=== PATIENT | female | born 1930 | race Caucasian/White ===

== ENCOUNTER 2016-06-07 10:20 | Observation (INO) | payer MEDICARE ==
[~2016-06-07] VITALS: Ht 160 cm; Wt 63.4 kg
[~2016-06-07 10:20] MED LIST: ASPI81 PO; ATOR10 PO; ESTR42.5V; TOPR25TA2 PO
[2016-06-07 10:25] VITALS: BP 175/82; PULSE 72; RESP 18; TEMP 98.4; O2SAT 97
[2016-06-07] MEDS ORDERED: LIPI40TA PO (10:42)
[2016-06-07] MEDS ORDERED: METO25TA6 PO (10:42)
[2016-06-07] MEDS ORDERED: ASPI81CH37 CHEW (10:42)
[2016-06-07] MEDS ORDERED: ESTR0.5T PO (10:42)
[2016-06-07] MEDS ORDERED: SODIUM CHLORIDE 0.9% FLUSH 10 ML FLUSH IVF PRN (10:45)
[2016-06-07 10:47] VITALS: O2SAT 96
--- NOTE | 2016-06-07 10:52 | PD ---
HPI . Left upper extremity weakness Chief Complaint: Neuro Symptoms/ Deficits Time Seen by Provider: 10:41 Travel History International Travel<30 days: No Contact w/Intl Traveler<30days: No Traveled to known affect area: No History of Present Illness HPI Patient presents complaining with a brief episode of left upper extremity weakness. She noticed it while she was making her bed this morning. She pushed her life alert. By the time the medics arrived, the symptoms had resolved. She states that she probably had some slurred speech as well. She denies any other symptoms such as headache, diplopia/blurred vision. She denies any previous similar episodes. Patient reports a history of hypertension, coronary artery disease and hyperlipidemia. [id number]: Left upper extremity QUALITY: Paralyzed SEVERITY: Severe DURATION: 10 minutes TIMING: Occurred while awake this morning CONTEXT: History of hypertension, coronary artery disease and hyperlipidemia MODIFYING FACTORS: Spontaneously resolved ASSOCIATED SYMPTOMS: Possible slurred speech PFSH Past Medical History Arthritis: Yes Cancer: No Cardiac Catheterization: Yes Cardiovascular Problems: Yes (BYPASS/ HTN) High Cholesterol: Yes Diminished Hearing: No Endocrine: No Hypertension: Yes Immune Disorder: No Kidney Stones: Yes Neurologic: No Psychiatric: No Reproductive: No Respiratory: No Influenza Vaccination: Yes ?: Not Past Surgical History Abdominal Surgery: Yes Appendectomy: Yes Cardiac Surgery: Yes Coronary Artery Bypass Graft: Yes (4 VESSEL AND A VALVE REPLACED) Gynecologic Surgery: Yes (HYSTERECTOMY) Hysterectomy: Yes Social History Alcohol Use: Yes (RARELY) Tobacco Use: No Substance Use: No Allergies-Medications (Allergen,Severity, Reaction): Coded Allergies: Iodine (Verified Allergy, Severe, TONGUE SWELLS, HIVES, 06/07/16) Shrimp (Verified Allergy, Severe, SWELLING OF TROAT AND TONGUE, 06/07/16) Betadine (Verified Allergy, Mild, 06/07/16) Iohexol (OMNIPAQUE) (Verified Allergy, Mild, 06/07/16) Reported Meds & Prescriptions Reported Meds & Active Scripts Active Reported Tramadol (Tramadol HCl) 50 Mg Tab 50 Mg PO BID PRN Ranitidine 75 (Ranitidine HCl) 75 Mg Tab 75 Mg PO BID Take 30 to 60 minutes before eating food or drinking beverages that cause heartburn. Metoprolol Succinate ER 24 HR (Metoprolol Succinate) 25 Mg Tab 25 Mg PO DAILY Estradiol 0.5 Mg Tab 0.1 Mg PO DAILY Lipitor (Atorvastatin Calcium) 40 Mg Tab 40 Mg PO HS Aspirin Low Dose (Aspirin) 81 Mg Chew 81 Mg CHEW DAILY Review of Systems Except as stated in HPI: all other systems reviewed are Neg General / Constitutional: No: Fever, Chills HENT: No: Headaches, Lightheadedness Cardiovascular: No: Chest Pain or Discomfort Respiratory: No: Shortness of Breath Gastrointestinal: No: Nausea, Vomiting Neurologic: Positive: Weakness, Focal Abnormalities, Slurred Speech, No: Dizziness, Syncope, Headache, Change in Mentation, Incontinence Physical Exam Narrative GENERAL: This is a very healthy-appearing 86-year-old woman who is lucid and able to give her own history. SKIN: Warm and dry. HEAD: Atraumatic. Normocephalic. EYES: Pupils equal and round. Extraocular movements are intact. ENT: No nasal bleeding or discharge. Mucous membranes pink and moist. NECK: Trachea midline. Neck is supple. CARDIOVASCULAR: Regular rate and rhythm. Heart sounds are normal. RESPIRATORY: No accessory muscle use. Lungs are clear with good air movement throughout. GASTROINTESTINAL: Abdomen soft, non-tender, nondistended. MUSCULOSKELETAL: No obvious deformities. No edema. NEUROLOGICAL: Awake and alert. No obvious cranial nerve deficits. Motor grossly within normal limits. Normal speech. She has full and equal muscle strength in all muscle groups of the upper and lower extremities. PSYCHIATRIC: Appropriate mood and affect; insight and judgment normal. Data Data Last Documented VS Vital Signs Date Time Temp Pulse Resp B/P Pulse Ox O2 Delivery O2 Flow Rate FiO2 06/07/16 10:47 96 Room Air 06/07/16 10:25 98.4 72 18 175/82 Orders Electrocardiogram (06/07/16 ) Complete Blood Count With Diff (06/07/16 10:41) Comprehensive Metabolic Panel (06/07/16 10:41) Creatine Kinase (Cpk) (06/07/16 10:41) Troponin I (06/07/16 10:41) Ct Brain W/O Iv Contrast(Rout) (06/07/16 10:41) Ecg Monitoring (06/07/16 10:41) Iv Access Insert/Monitor (06/07/16 10:41) Oximetry (06/07/16 10:41) Sodium Chloride 0.9% Flush (Ns Flush) (06/07/16 10:45) Admit To Inpatient (06/07/16 ) Code Status (06/07/16 12:22) Vital Signs (Adult) Q4H (06/07/16 12:22) Nih Stroke Scale - Nihss .On admission and discharge (06/07/16 12:22) Neuro Checks Q2HX12,Q4H (06/07/16 12:22) ^ Notify Dr: Other (06/07/16 12:22) Consult Pt Eval & Treat (06/07/16 12:22) Case Management Consult (06/07/16 ) Activity Bed Rest (06/07/16 12:22) Nursing Bedside Swallow Assess .ONCE (06/07/16 12:22) Scd Bilateral/Knee High IVON.QSHIFT (06/07/16 12:22) Hemoglobin (Hgb) A1c (06/07/16 12:22) Lipid Profile (06/08/16 06:00) Us Carotid Arteries Comp Bilat (06/07/16 ) Holter Monitor Recording (06/07/16 ) Mra Brain W/O Contrast (Cow) (06/07/16 ) Mri Brain W/O Contrast (06/07/16 ) Echo 2d Comp W/Dopp(Routine) (06/07/16 ) Resp Oxygen Rc C Titrat 1-4 L (06/07/16 ) ^ Hold Medication (06/07/16 12:22) Sodium Chloride 0.9% Flush (Ns Flush) (06/07/16 21:00) Sodium Chloride 0.9% Flush (Ns Flush) (06/07/16 12:30) Enalaprilat Inj (Vasotec Inj) (06/07/16 12:30) Labetalol Inj (Trandate Inj) (06/07/16 12:30) Aspirin (Aspirin) (06/07/16 13:00) Coffee Attendant / Telemetry IVON.Q8H (06/07/16 12:22) Consult Stoke Navigator (06/07/16 ) Scd Bilateral/Knee High IVON.BID (06/07/16 12:22) Inpatient Certification (06/07/16 ) Atorvastatin (Lipitor) (06/07/16 21:00) Metoprolol Succinate Er (Toprol Xl) (06/08/16 09:00) Admit Order (Ed Use Only) (06/07/16 12:36) Labs Laboratory Tests Test 06/07/16 10:40 White Blood Count 8.5 TH/MM3 Red Blood Count 4.04 MIL/MM3 Hemoglobin 12.5 GM/DL Hematocrit 37.7 % Mean Corpuscular Volume 93.4 FL Mean Corpuscular Hemoglobin 30.9 PG Mean Corpuscular Hemoglobin 33.1 % Concent Red Cell Distribution Width 13.0 % Platelet Count 214 TH/MM3 Mean Platelet Volume 8.1 FL Neutrophils (%) (Auto) 52.0 % Lymphocytes (%) (Auto) 30.2 % Monocytes (%) (Auto) 10.8 % Eosinophils (%) (Auto) 6.2 % Basophils (%) (Auto) 0.8 % Neutrophils # (Auto) 4.4 TH/MM3 Lymphocytes # (Auto) 2.6 TH/MM3 Monocytes # (Auto) 0.9 TH/MM3 Eosinophils # (Auto) 0.5 TH/MM3 Basophils # (Auto) 0.1 TH/MM3 CBC Comment DIFF FINAL Differential Comment Sodium Level 141 MEQ/L Potassium Level 3.7 MEQ/L Chloride Level 107 MEQ/L Carbon Dioxide Level 27.3 MEQ/L Anion Gap 7 MEQ/L Blood Urea Nitrogen 19 MG/DL Creatinine 0.92 MG/DL Estimat Glomerular Filtration 58 ML/MIN Rate Random Glucose 70 MG/DL Hemoglobin A1c 5.2 % Calcium Level 8.9 MG/DL Total Bilirubin 0.4 MG/DL Aspartate Amino Transf 14 U/L (AST/SGOT) Alanine Aminotransferase 20 U/L (ALT/SGPT) Alkaline Phosphatase 86 U/L Total Creatine Kinase 78 U/L Troponin I LESS THAN 0.02 NG/ML Total Protein 6.6 GM/DL Albumin 3.6 GM/DL [facility] Medical Decision Making Medical Screen Exam Complete: Yes Emergency Medical Condition: Yes Medical Record Reviewed: Yes (patient has a history of recurrent disease and is status post CABG and prosthetic aortic valve.) Interpretation(s) EKG shows a sinus rhythm with no ST segment elevation or depression. Differential Diagnosis Differential diagnosis includes but is not limited to TIA, CVA, brain tumor, migraine, anxiety Narrative Course Patient presents with a brief episode of left upper extremity paralysis. She has no previous similar history. She does have risk factors for TIA/CVA in that she has a history of hypertension and hyperlipidemia. She also has known coronary artery disease. I had intended to order a CTA of her head and neck but she has anaphylaxis to dye. CBC & BMP Diagram 06/07/16 10:40 Cardiac enzymes are negative. Last Impressions Head CT 06/07/16 1041 Signed Impressions: Service Date/Time: Tuesday, June 07, 2016 11:18 - CONCLUSION: No acute disease. Durga Marte MD FACR Head Magnetic Resonance Angiography 06/07/16 0000 Signed Impressions: Service Date/Time: Tuesday, June 07, 2016 14:21 - CONCLUSION: 1. No acute abnormality. Obinna Melendrez Jr., MD Carotid Artery Ultrasound 06/07/16 0000 Signed Impressions: Service Date/Time: Tuesday, June 07, 2016 13:17 - CONCLUSION: Negative examination for a hemodynamically significant carotid stenosis. Durga Marte MD Brain MRI 06/07/16 0000 Signed Impressions: Service Date/Time: Tuesday, June 07, 2016 14:21 - CONCLUSION: 1. No evidence of acute intracranial pathology. Chronic ischemic changes as above. Octavio Echavarria MD Diagnosis Primary Impression: Transient neurologic deficit Admitting Information Admitting Physician Requests: Admit Condition: Stable Kalyani Quiroz MD Jun 07, 2016 10:52
[2016-06-07 11:07] LABS: AUTOMATED NEUTROPHIL # 4.4 TH/MM3 (1.8-7.7); BASOPHIL # 0.1 TH/MM3 (0-0.2); BASOPHIL % 0.8 % (0.0-2.0); EOSINOPHIL # 0.5 TH/MM3 (0-0.4); EOSINOPHIL % 6.2 % (0.0-4.0); HEMATOCRIT 37.7 % (35.0-46.0); HEMO FLAGS DIFF FINAL; LYMPH % 30.2 % (9.0-44.0); LYMPHOCYTE # 2.6 TH/MM3 (1.0-4.8); MEAN CELL VOLUME 93.4 FL (80.0-100.0); MEAN CORPUSCULAR HEMOGLOBIN 30.9 PG (27.0-34.0); MEAN CORPUSCULAR HGB CONC 33.1 % (32.0-36.0); MONO % 10.8 % (0.0-8.0); PLATELET COUNT 214 TH/MM3 (150-450); RED BLOOD COUNT 4.04 MIL/MM3 (4.00-5.30); WHITE BLOOD COUNT 8.5 TH/MM3 (4.0-11.0)
[2016-06-07 11:21] LABS: ALT (GPT) 20 U/L (10-53); ANION GAP 7 MEQ/L (5-15); AST (GOT) 14 U/L (15-37); BICARBONATE 27.3 MEQ/L (21.0-32.0); BLOOD UREA NITROGEN 19 MG/DL (7-18); CHLORIDE 107 MEQ/L (98-107); GLOMERULAR FILTRATION RATE 58 ML/MIN (>89); POTASSIUM 3.7 MEQ/L (3.5-5.1); SODIUM (NA) 141 MEQ/L (136-145)
[2016-06-07 11:25] LABS: ALKALINE PHOSPHATASE 86 U/L (45-117); TOTAL BILIRUBIN ADULT 0.4 MG/DL (0.2-1.0)
[2016-06-07 11:38] LABS: CREATINE KINASE 78 U/L (26-192)
--- NOTE | 2016-06-07 11:57 | RADRPT ---
EXAM DATE/TIME: 06/07/2016 11:18 [facility] COMPARISON: No previous studies available for comparison. INDICATIONS : Sudden onset of left arm and leg weakness, since resolved. RADIATION DOSE: 37.95 CTDIvol (mGy) MEDICAL HISTORY : Cardiovascular disease. Hypertension. SURGICAL HISTORY : Appendectomy. Hysterectomy. ENCOUNTER: Initial ACUITY: 1 day PAIN SCALE: 0/10 LOCATION: cranial TECHNIQUE: Multiple contiguous axial images were obtained of the head. Using automated exposure control and adj ustment of the mA and/or kV according to patient size, radiation dose was kept as low as reasonably a chievable to obtain optimal diagnostic quality images. FINDINGS: CEREBRUM: The ventricles are normal for age. No evidence of midline shift, mass lesion, hemorrhage or acute in farction. No extra-axial fluid collections are seen. POSTERIOR FOSSA: The cerebellum and brainstem are intact. The 4th ventricle is midline. The cerebellopontine angle i s unremarkable. EXTRACRANIAL: The visualized portion of the orbits is intact. SKULL: The calvaria is intact. No evidence of skull fracture. CONCLUSION: No acute disease. Durga Marte MD FACR on June 07, 2016 at 11:55 Board Certified Radiologist. This report was verified electronically.
[2016-06-07] MEDS ORDERED: ENALAPRILAT 1.25 MG/ML VIAL IV PRN (12:30)
[2016-06-07] MEDS ORDERED: LABETALOL HCL 100 MG/20 ML VIAL IV PRN (12:30)
[2016-06-07] MEDS ORDERED: SODIUM CHLORIDE 0.9% FLUSH 10 ML FLUSH IV FLUSH PRN (12:30)
[2016-06-07 13:00] VITALS: BP 166/69; PULSE 57; RESP 19; O2SAT 97
[2016-06-07] MEDS: ASPIRIN 325 MG TAB PO SCH (13:40)
--- NOTE | 2016-06-07 14:04 | RADRPT ---
EXAM DATE/TIME: 06/07/2016 13:17 [facility] COMPARISON: No previous studies available for comparison. INDICATIONS : Transischemic attack. MEDICAL HISTORY : CAD. Hypertension. Coronary artery disease. SURGICAL HISTORY : CABG. Appendectomy. Hysterectomy. ENCOUNTER: Initial ACUITY: 1 day PAIN SCORE: 0/10 LOCATION: Bilateral neck PEAK SYSTOLIC VELOCITIES (cm/sec): ICA/CCA RATIO: Right: 0.9 Left: 0.9 ICA: Right: 87 Left: 95 CCA: Right: 97 Left: 105 ECA: Right: 75 Left: 88 VERTEBRAL: Right: 21 antegrade Left: 38 antegrade Elevated flow velocities and ICA/CCA ratios have been found to correlate with increased degrees of vessel stenosis, calculated as percentage of diameter relative to a normal segment of distal ICA/CCA FINDINGS: RIGHT CAROTID: There is no evidence for a hemodynamically significant carotid stenosis. Minimal int imal hyperplasia is present with scattered calcific plaque. LEFT CAROTID: There is no evidence for a hemodynamically significant carotid stenosis. Minimal inti mal hyperplasia is present with scattered calcific plaque. VERTEBRAL ARTERIES: Flow is antegrade in both vertebral arteries. MISCELLANEOUS: There are no ancillary masses or adenopathy. CONCLUSION: Negative examination for a hemodynamically significant carotid stenosis. Durga Marte MD FACR Board Certified Radiologist. This report was verified electronically.
--- NOTE | 2016-06-07 14:48 | RADRPT ---
EXAM DATE/TIME: 06/07/2016 14:21 [facility] COMPARISON: CT BRAIN W/O CONTRAST, June 07, 2016, 11:18. INDICATIONS : Left sided weakness. MEDICAL HISTORY : Hypertension. SURGICAL HISTORY : CABG Hysterectomy. Hip replacement. ENCOUNTER: Initial ACUITY: 2 day PAIN SCORE: 0/10 LOCATION: head Please note a normal MRA of the brain does not entirely exclude the possibility of a small aneurysm, nor the possibility of distal intracranial vessel disease. TECHNIQUE: 3D time of flight MRA was performed. Source images, multiplanar STS MIP, and 3D volume MIP reconstru ctions were reviewed. FINDINGS: There is excellent visualization of the major intracranial arteries out to the second-order branch ve ssels. The right vertebral artery terminates in a PICA distribution. The left supplies the basilar. P ersistent circulation is noted bilaterally. There is no evidence for aneurysm, vessel truncati on or stenosis, and no evidence for vascular malformation. CONCLUSION: 1. No acute abnormality. Obinna Melendrez Jr., MD on June 07, 2016 at 14:44 Board Certified Radiologist. This report was verified electronically.
[2016-06-07] MEDS ORDERED: TRAM50TA PO (15:04)
[2016-06-07] MEDS ORDERED: RANI1TAB5 PO (15:04)
--- NOTE | 2016-06-07 15:28 | HHI.HP ---
HPI Service [facility] Hospitalists Primary Care Physician Rafi Reardon MD Admission Diagnosis Transient neurological deficit Chief Complaint: Brief left UE weakness Travel History International Travel<30 Days: No Contact w/Intl Traveler <30 Da: No Traveled to Known Affected Are: No History of Present Illness Mrs. Whaley is a pleasant 86 y/o female with HTN, hyperlipidemia, valvular heart disease, CAD and GERD who presented to the ED at [facility] on 06/07 after she had a brief episode of left upper extremity weakness this morning. She states that she noticed it while she was making her bed this morning and thinks she may have had some slurred speech as well. Pt became scared as she lives alone and she pushed her life alert. By the time the medics arrived, the symptoms had resolved. She denies any other symptoms such as headache, diplopia/blurred vision, chest pain, SOB, palpitations, or LE edema. She denies any previous similar episodes. Head CT in the ED was negative for any acute abnormalities. Review of Systems Constitutional: DENIES: Fever, Chills Eyes: DENIES: Blurred vision, Vision loss, Double Vision Ears, nose, mouth, throat: DENIES: Vertigo Respiratory: DENIES: Shortness of breath Cardiovascular: DENIES: Chest pain, Palpitations, Lower Extremity Edema Gastrointestinal: DENIES: Abdominal pain, Nausea, Vomiting Genitourinary: DENIES: Hematuria, Dysuria Musculoskeletal: DENIES: Joint pain Integumentary: DENIES: Rash Neurologic: COMPLAINS OF: Localized weakness, DENIES: Abnormal gait, Headache , Paresthesias, Poor Balance Past Family Social History Past Medical History AAA Aortic valve stenosis HTN Hyperlipidemia Osteoarthritis Osteoporosis Thoracic spondylosis Past Surgical History Aortic valve replacement in 1999 CABG x 4 Appendectomy Epidural steroid injections Hysterectomy, total Left total hip replacement Vaginal sling for incontinence Varicose vein ligation Reported Medications -Tramadol 50 Mg PO BID PRN -Ranitidine 75 Mg PO BID -Metoprolol Succinate ER 25 Mg PO DAILY -Estradiol 0.1 Mg PO DAILY -Lipitor 40 Mg PO HS -Aspirin 81 Mg CHEW DAILY Allergies: Coded Allergies: Iodine (Verified Allergy, Severe, TONGUE SWELLS, HIVES, 06/07/16) Shrimp (Verified Allergy, Severe, SWELLING OF TROAT AND TONGUE, 06/07/16) Betadine (Verified Allergy, Mild, 06/07/16) Iohexol (OMNIPAQUE) (Verified Allergy, Mild, 06/07/16) Family History Mother at age 58 from a CVA Father at age 56 from a CVA Sister at age 77 from CVA Social History No reported alcohol, tobacco or illicit drug use Pt is and lives alone, however her children live locally and are a good support for her. Physical Exam Vital Signs Vital Signs Date Time Temp Pulse Resp B/P Pulse Ox O2 Delivery O2 Flow Rate FiO2 06/07/16 13:00 57 19 166/69 97 Room Air 06/07/16 10:47 96 Room Air 06/07/16 10:25 98.4 72 18 175/82 97 Physical Exam GENERAL: This is a well-nourished, well-developed patient, in no apparent distress. HEENT: Atraumatic. Normocephalic. No temporal or scalp tenderness. No scleral icterus. Airway patent. NECK: Trachea midline, supple, nontender. CARDIO: Regular. RESP: CTA bilaterally. No wheezes, rales, or rhonchi. ABD: +BS, soft, non-tender, nondistended. EXT: Extremities without clubbing, cyanosis, or edema. NEURO: Awake and alert. Motor and sensory grossly within normal limits. Normal speech. Laboratory Laboratory Tests Test 06/07/16 10:40 White Blood Count 8.5 Red Blood Count 4.04 Hemoglobin 12.5 Hematocrit 37.7 Mean Corpuscular Volume 93.4 Mean Corpuscular Hemoglobin 30.9 Mean Corpuscular Hemoglobin 33.1 Concent Red Cell Distribution Width 13.0 Platelet Count 214 Mean Platelet Volume 8.1 Neutrophils (%) (Auto) 52.0 Lymphocytes (%) (Auto) 30.2 Monocytes (%) (Auto) 10.8 Eosinophils (%) (Auto) 6.2 Basophils (%) (Auto) 0.8 Neutrophils # (Auto) 4.4 Lymphocytes # (Auto) 2.6 Monocytes # (Auto) 0.9 Eosinophils # (Auto) 0.5 Basophils # (Auto) 0.1 CBC Comment DIFF FINAL Differential Comment Sodium Level 141 Potassium Level 3.7 Chloride Level 107 Carbon Dioxide Level 27.3 Anion Gap 7 Blood Urea Nitrogen 19 Creatinine 0.92 Estimat Glomerular Filtration 58 Rate Random Glucose 70 Calcium Level 8.9 Total Bilirubin 0.4 Aspartate Amino Transf 14 (AST/SGOT) Alanine Aminotransferase 20 (ALT/SGPT) Alkaline Phosphatase 86 Total Creatine Kinase 78 Troponin I LESS THAN 0.02 Total Protein 6.6 Albumin 3.6 Result Diagram: 06/07/16 1040 06/07/16 1040 Imaging Last Impressions Head CT 06/07/16 1041 Signed Impressions: Service Date/Time: Tuesday, June 07, 2016 11:18 - CONCLUSION: No acute disease. Durga Marte MD FACR Head Magnetic Resonance Angiography 06/07/16 0000 Signed Impressions: Service Date/Time: Tuesday, June 07, 2016 14:21 - CONCLUSION: 1. No acute abnormality. Obinna Melendrez Jr., MD Carotid Artery Ultrasound 06/07/16 0000 Signed Impressions: Service Date/Time: Tuesday, June 07, 2016 13:17 - CONCLUSION: Negative examination for a hemodynamically significant carotid stenosis. Durga Marte MD Septic Shock Reassessment Heart: Regular rate and rhythm Lungs: Clear Skin: Warm Peripheral Pulses: Bounding Right Radial Bounding Left Radial Bounding Right Popliteal Bounding Left Popliteal Bounding Right Dorsalis Pedis Bounding Left Dorsalis Pedis Bounding Right Posterior Tibial Bounding Left Posterior Tibial Assessment and Plan Problem List: (1) Transient neurologic deficit Status: Acute Plan: - Pt was admitted after an episode of transient weakness in her left upper extremity while making her bed this morning. Its unclear if she had any slurred speech associated with this or not. Her symptoms resolved prior to [facility] arrival. - Pt has not had any previous similar episodes. She has a strong family hx of CVA and does have risk factors, including CAD, HTN, hyperlipidemia - Head CT was negative,. - Check MRI brain, MRA brain, Carotid US - Holter monitor - 2D echo - Lipid panel - Hgb A1C - PT evaluation - Anticipate discharge home tomorrow if above workup is negative. - DVT prophylaxis (2) HTN (hypertension) Status: Chronic Plan: - Cont. Metoprolol 25mg po daily - Monitor (3) Hyperlipidemia Status: Chronic Plan: - See above. - Cont. home meds (4) GERD (gastroesophageal reflux disease) Status: Chronic Plan: - PPI Assessment and Plan Patient examined. Assessment and plan formulated with Coco Starr PA-C. I agree with the above. Physician Certification 2 Midnight Certification Type: Admission for Inpatient Services Order for Inpatient Services The services are ordered in accordance with Medicare regulations or non- Medicare payer requirements, as applicable. In the case of services not specified as inpatient-only, they are appropriately provided as inpatient services in accordance with the 2-midnight benchmark. Estimated LOS (days): 2 2 days is the estimated time the patient will need to remain in the hospital, assuming treatment plan goals are met and no additional complications. Post-Hospital Plan: Not yet determined Problem Qualifiers (1) GERD (gastroesophageal reflux disease): Qualified Code: K21.9 - Gastroesophageal reflux disease, esophagitis presence not specified Coco Starr Jun 07, 2016 15:28 Daniel Wheatley DO Jun 08, 2016 23:17
[2016-06-07 15:40] LABS: HEMOGLOBIN A1a 0.8 %; HEMOGLOBIN A1b 1.8 %
--- NOTE | 2016-06-07 16:16 | RADRPT ---
EXAM DATE/TIME: 06/07/2016 14:21 [facility] COMPARISON: No previous studies available for comparison. INDICATIONS : Left sided weakness. MEDICAL HISTORY : Hypertension. SURGICAL HISTORY : CABG Hysterectomy. Hip replacement. ENCOUNTER: Initial ACUITY: 2 day PAIN SCORE: 0/10 LOCATION: head TECHNIQUE: Multiplanar, multisequence MRI of the brain was performed without contrast. FINDINGS: MRI of the brain is performed in sagittal, axial and coronal planes. The craniocervical junction and midline structures are unremarkable. Diffusion weighted images demonstrate no abnormality. There is n o evidence of acute cortical infarction, acute hemorrhage, mass effect or midline shift is seen. Ther e is periventricular hyperintensity on the T2 weighted images consistent with small vessel vascular d isease significantly more than expected in a patient of this age. 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 Posterior fossa structures are unremarkable. CONCLUSION: 1. No evidence of acute intracranial pathology. Chronic ischemic changes as above. Octavio Echavarria MD on June 07, 2016 at 16:02 Board Certified Radiologist. This report was verified electronically.
[2016-06-07 16:30] VITALS: BP 174/74; PULSE 62; RESP 20; O2SAT 96
[2016-06-07 18:00] VITALS: BP 157/65; PULSE 65; RESP 20; O2SAT 96
--- NOTE | 2016-06-07 19:52 | EKG ---
Date Performed: 06/07/2016 Time Performed: 10:31:08 PTAGE: 86 years EKG: Sinus rhythm MINIMAL ST DEPRESSION BORDERLINE ECG PREVIOUS TRACING : 07/26/2006 09.00 Compared to prior tracing no significant change DOCTOR: Mulu Castillo Interpretating Date/Time 06/07/2016 19:51:01
[2016-06-07 20:30] VITALS: BP 167/73; PULSE 68; RESP 20; TEMP 97.3; O2SAT 97
[2016-06-07] MEDS ORDERED: RANITIDINE 75 MG PO SCH (21:00)
--- NOTE | 2016-06-07 21:00 | EC ---
Study Study Date:06/07/2016 STUDY CONCLUSIONS SUMMARY - Left ventricle: The cavity size was normal. Wall thickness was normal. Systolic function was normal. The estimated ejection fraction was in the range of 50% to 55%. Wall motion was normal; there were no regional wall motion abnormalities. - Aortic valve: A bioprosthesis was present. Mild regurgitation. Valve area: 1.25cm^2(VTI). Valve area: 1.28cm^2 (Vmax). - Mitral valve: Mildly calcified annulus. - Tricuspid valve: Mild regurgitation. If LV function is below 40, please consider prescribing an ACEI or ARB or document rationale for non-use. PROCEDURE DATA STUDY STATUS: Elective. Procedure: Transthoracic echocardiography. Image quality was good. Scanning was performed from the parasternal, apical, and subcostal acoustic windows. Study completion: The patient tolerated the procedure well. Transthoracic echocardiography. M-mode, complete 2D, complete spectral Doppler, and color Doppler. Height: Height: 64in. Weight: Weight: 126.7lb. Body mass index: BMI: 21.8kg/m^2. Body surface area: BSA: 1.61m^2. Patient status: Inpatient. CARDIAC ANATOMY LEFT VENTRICLE: The cavity size was normal. Wall thickness was normal. Systolic function was normal. The estimated ejection fraction was in the range of 50% to 55%. Wall motion was normal; there were no regional wall motion abnormalities. AORTIC VALVE: Normal thickness leaflets. A bioprosthesis was present. Doppler: Transvalvular velocity was minimally increased. There was no stenosis. Mild regurgitation. Valve area: 1.25cm^2(VTI). Indexed valve area: 0.78cm^2/m^2 (VTI). Valve area: 1.28cm^2 (Vmax). Indexed valve area: 0.8cm^2/m^2 (Vmax). Mean gradient: 12mm Hg (S). Peak gradient: 23mm Hg (S). AORTA: Aortic root: The aortic root was normal in size. MITRAL VALVE: Mildly calcified annulus. Doppler: Transvalvular velocity was within the normal range. There was no evidence for stenosis. No regurgitation. Valve area by pressure half-time: 3.14cm^2. Indexed valve area by pressure half-time: 1.95cm^2/m^2. Peak gradient: 4mm Hg (D). LEFT ATRIUM: The atrium was normal in size. RIGHT VENTRICLE: The cavity size was normal. Wall thickness was normal. PULMONIC VALVE: Doppler: Transvalvular velocity was within the normal range. There was no evidence for stenosis. No regurgitation. TRICUSPID VALVE: Structurally normal valve. Doppler: Transvalvular velocity was within the normal range. Mild regurgitation. Peak gradient: 27mm Hg (D). PULMONARY ARTERY: The main pulmonary artery was normal-sized. Systolic pressure was within the normal range. RIGHT ATRIUM: The atrium was normal in size. PERICARDIUM: There was no pericardial effusion. SYSTEMIC VEINS: Inferior vena cava: The vessel was normal in size. Patient weight: 126.7lb _Ejection fraction:_ 65-75% _Fractional shortening:_ 32% up to 5Kg 5-11.5Kg 11.6-22.9Kg 23-45Kg 45-57Kg Aortic Root 7-13 <17 13-22 17-27 17-27 LA diam 6-13 <23 24-38 33-47 37-40 RVID 10-17 7-15 7-15 7-18 8-17 LVIDd 12-22 <32 24-38 33-47 37-40 LVPW 2-4 3-6 5-7 6-8 7-8 IVS 2-4 3-6 5-7 6-8 7-8 BASIC MEASUREMENTS ADULT NORMAL Left ventricle LV internal dimension, ED, chordal *37.2 mm 43-52 level, PLAX LV internal dimension, ES, chordal *21.6 mm 23-38 level, PLAX Fractional shortening, chordal level, 42 % >29 PLAX LV posterior wall thickness, ED 11.8 mm IVS/LVPW ratio, ED 1 <1.3 Volume, ED, MOD, 1-plane 55 ml Volume, ES, MOD, 1-plane 22 ml Ejection fraction, MOD, 1-plane 60 % Stroke volume, MOD, 1-plane 33 ml Volume index, ED, MOD, 1-plane 34 ml/m^2 Volume index, ES, MOD, 1-plane 14 ml/m^2 Stroke index, MOD, 1-plane 20.5 ml/m^2 Ventricular septum Septal thickness, ED 11.8 mm Aortic valve Leaflet separation *12 mm 15-26 Aorta Root diameter, ED 31 mm Left atrium Anterior-posterior dimension 39 mm Anterior-posterior dimension index *2.42 cm/m^2 <2.2 Right ventricle RV internal dimension, ED, PLAX 27.4 mm 19-38 BASIC MEASUREMENTS ADULT NORMAL Aortic valve Leaflet separation *12 mm 15-26 Aorta Root diameter, ED 31 mm 20-37 DOPPLER MEASUREMENTS ADULT NORMAL Aortic valve Peak velocity, S 239 cm/s Mean velocity, S 167 cm/s VTI, S 51.1 cm Mean gradient, S 12 mm Hg Peak gradient, S 23 mm Hg Valve area, VTI 1.25 cm^2 Valve area index, VTI 0.78 cm^2/m^2 Valve area, Vmax 1.28 cm^2 Valve area index, Vmax 0.8 cm^2/m^2 Regurgitant velocity, ED 255 cm/s Regurgitant deceleration 1520 cm/s^2 Regurgitant pressure half-time 447 ms Regurgitant gradient, ED 26 mm Hg Mitral valve Peak E-wave velocity 102 cm/s Peak A-wave velocity 123 cm/s Pressure half-time 70 ms Peak gradient, D 4 mm Hg Peak E/A ratio 0.8 Valve area, pressure half-time 3.14 cm^2 Valve area index, pressure half-time 1.95 cm^2/m^2 Tricuspid valve Peak gradient, D 27 mm Hg Maximal inflow velocity 262 cm/s Systemic veins Estimated CVP 10 mm Hg Pulmonic valve Peak velocity, S 47.5 cm/s LEGEND: Mean values are shown as u=mean value. Asterisk (*) luciano values outside specified normal range. Prepared and signed by Dewey Mehta [id number]
[2016-06-07] MEDS: ATORVASTATIN 40 MG TAB PO SCH (22:53)
[2016-06-07] MEDS: SODIUM CHLORIDE 0.9% FLUSH 10 ML FLUSH IV FLUSH SCH (22:53)
[2016-06-08] VITALS (9 sets, daily range): BP systolic 145–208; BP diastolic 64–89; PULSE 63–94; RESP 18; TEMP 95.7–97.1; O2SAT 65–96
[2016-06-08] MEDS: ASPIRIN 325 MG TAB PO SCH (08:19)
[2016-06-08] MEDS: SODIUM CHLORIDE 0.9% FLUSH 10 ML FLUSH IV FLUSH SCH ×2 (08:20→21:00)
[2016-06-08] MEDS: METOPROLOL SUCCINATE 25 MG EXTENDED RELEASE TAB PO SCH (08:20)
[2016-06-08 09:26] LABS: HDL CHOLESTEROL 65.9 MG/DL (40.0-60.0)
--- NOTE | 2016-06-08 15:14 | HHI.PR ---
Subjective Remarks No new complaints. Pt denies further focal weakness, NO difficulties with speech or swallow. Objective Vitals Vital Signs Date Time Temp Pulse Resp B/P Pulse Ox O2 Delivery O2 Flow Rate FiO2 06/08/16 13:05 96.7 94 18 181/71 94 06/08/16 11:31 96 21 06/08/16 08:57 97.1 69 18 186/84 95 06/08/16 04:00 96.3 65 18 169/74 65 06/08/16 00:00 97.0 63 18 174/74 96 06/07/16 20:30 97.3 68 20 167/73 97 06/07/16 18:00 65 20 157/65 96 Room Air 06/07/16 16:30 62 20 174/74 96 Room Air 06/07/16 06/07/16 06/08/16 15:00 23:00 07:00 Intake Total 120 ml Balance 120 ml Intake Oral 120 ml # Voids 1 3 # Bowel Movements 0 1 Result Diagram: 06/07/16 1040 06/07/16 1040 Imaging Last Impressions Head CT 06/07/16 1041 Signed Impressions: Service Date/Time: Tuesday, June 07, 2016 11:18 - CONCLUSION: No acute disease. Durga Marte MD FACR Head Magnetic Resonance Angiography 06/07/16 0000 Signed Impressions: Service Date/Time: Tuesday, June 07, 2016 14:21 - CONCLUSION: 1. No acute abnormality. Obinna Melendrez Jr., MD Carotid Artery Ultrasound 06/07/16 0000 Signed Impressions: Service Date/Time: Tuesday, June 07, 2016 13:17 - CONCLUSION: Negative examination for a hemodynamically significant carotid stenosis. Durga Marte MD Objective Remarks GENERAL: This is a well-nourished, well-developed patient, in no apparent distress. CARDIOVASCULAR: Regular rate and rhythm without murmurs, gallops, or rubs. RESPIRATORY: Clear to auscultation. Breath sounds equal bilaterally. No wheezes , rales, or rhonchi. GASTROINTESTINAL: Abdomen soft, non-tender, nondistended. Normal active bowel sounds MUSCULOSKELETAL: Extremities without clubbing, cyanosis, or edema. NEURO: Alert & Oriented x4 to person, place, time, situation. Moves all ext x4 A/P Problem List: (1) Transient neurologic deficit Status: Acute Plan: - Pt was admitted after an episode of transient weakness in her left upper extremity while making her bed this morning. Its unclear if she had any slurred speech associated with this or not. Her symptoms resolved prior to [facility] arrival. - Pt has not had any previous similar episodes. She has a strong family hx of CVA and does have risk factors, including CAD, HTN, hyperlipidemia - Head CT was negative - Brain MRI (06/07/16) --> NO acute findings - Brain MRA (06/07/16) --> NO acute findings - B/L Carotid US --> NO hemodynamically significant stenosis - Echocardiogram (06/07/16) --> EF 60-65%, no thrombus - Holter monitor --> pending - 2D echo - LDL 92 (06/08/16), continue lipitor - Hgb A1C 5.2 (06/07/16) - continue PT , will arrange for HHC and home PT - stop permissive HTN & reign in blood pressure prior to discharge - continue metoprolol 25mg BID - start procardia xl 30mg daily - continue ASA - start plavix - anticipate d/c to home with HHC/PT in 1-2 days - DVT prophylaxis (2) HTN (hypertension) Status: Chronic Plan: - Cont. Metoprolol 25mg po daily - start procardia XL 30mg daily - Monitor (3) Hyperlipidemia Status: Chronic Plan: - See above. - Cont. home meds (4) GERD (gastroesophageal reflux disease) Status: Chronic Plan: - PPI Problem Qualifiers (1) GERD (gastroesophageal reflux disease): Qualified Code: K21.9 - Gastroesophageal reflux disease, esophagitis presence not specified Daniel Wheatley DO Jun 08, 2016 15:14
--- NOTE | 2016-06-08 15:41 | HHI.FF ---
Face to Face Verification Diagnosis: (1) Transient neurologic deficit (2) HTN (hypertension) (3) GERD (gastroesophageal reflux disease) (4) Hyperlipidemia Physical Therapy Order: Evaluate and Treat, Improve ambulation, Strength and gait training Home Health Nursing Order: Signs/symptoms of disease process Nursing assessment with vital signs I have seen patient Omayra Whaley on 06/08/16. My clinical findings support the need for the requested home health care services because: Deconditioned w/ increased weakness High risk of falls I certify that my clinical findings support that this patient is homebound because: Unsteady gait/balance Coco Starr Jun 08, 2016 15:41 Daniel Wheatley DO Jun 08, 2016 23:16
[2016-06-08] MEDS ORDERED: WALKER WHEELS/F1 MIS (15:43)
[2016-06-08] MEDS: NIFEdipine 30 MG SUSTAINED RELEASE TAB PO SCH (16:36)
[2016-06-08] MEDS: CLOPIDOGREL 75 MG TAB PO SCH (16:37)
[2016-06-08] MEDS: ATORVASTATIN 40 MG TAB PO SCH (22:24)
[2016-06-09] VITALS (9 sets, daily range): BP systolic 108–163; BP diastolic 56–76; PULSE 55–133; RESP 18–21; TEMP 95.9–98.5; O2SAT 94–99
[2016-06-09] MEDS: METOPROLOL SUCCINATE 25 MG EXTENDED RELEASE TAB PO SCH (08:58)
[2016-06-09] MEDS: ASPIRIN 325 MG TAB PO SCH (08:58)
[2016-06-09] MEDS: SODIUM CHLORIDE 0.9% FLUSH 10 ML FLUSH IV FLUSH SCH (08:58)
[2016-06-09] MEDS: CLOPIDOGREL 75 MG TAB PO SCH (08:58)
[2016-06-09] MEDS: NIFEdipine 30 MG SUSTAINED RELEASE TAB PO SCH (08:58)
[2016-06-09] MEDS ORDERED: PLAV75TA29 PO (15:23)
[2016-06-09] MEDS ORDERED: NIFE30TA8 PO (15:23)
--- NOTE | 2016-06-09 15:25 | HHI.DCPOC ---
Discharge Care Plan Diagnosis: (1) TIA (transient ischemic attack) (2) HTN (hypertension) (3) GERD (gastroesophageal reflux disease) (4) Hyperlipidemia Goals to Promote Your Health * To prevent worsening of your condition and complications * To maintain your health at the optimal level Directions to Meet Your Goals Take your medications as prescribed Follow your dietary instruction Follow activity as directed Keep your appointments as scheduled Take your immunizations and boosters as scheduled If your symptoms worsen call your PCP, if no PCP go to Urgent Care Center or Emergency Room Smoking is Dangerous to Your Health. Avoid second hand smoke Call the 24-hour hour crisis hotline for domestic abuse at Coco Starr Jun 09, 2016 15:25 Daniel Wheatley DO Jun 11, 2016 10:49
--- NOTE | 2016-06-09 15:34 | HHI.DS ---
Discharge Summary Admission Date Jun 07, 2016 at 12:38 Discharge Date: Jun 09, 2016 Admitting Diagnosis Transient neurological deficit (1) TIA (transient ischemic attack) Diagnosis: Principal (2) HTN (hypertension) Diagnosis: Secondary (3) Hyperlipidemia Diagnosis: Secondary (4) GERD (gastroesophageal reflux disease) Diagnosis: Secondary Brief History Mrs. Whaley is a pleasant 86 y/o female with HTN, hyperlipidemia, valvular heart disease, CAD and GERD who presented to the ED at [facility] on 06/07 after she had a brief episode of left upper extremity weakness this morning. She states that she noticed it while she was making her bed this morning and thinks she may have had some slurred speech as well. Pt became scared as she lives alone and she pushed her life alert. By the time the medics arrived, the symptoms had resolved. She denies any other symptoms such as headache, diplopia/blurred vision, chest pain, SOB, palpitations, or LE edema. She denies any previous similar episodes. Head CT in the ED was negative for any acute abnormalities. CBC/BMP: 06/07/16 1040 06/07/16 1040 Significant Findings Laboratory Tests Test 06/07/16 06/08/16 10:40 07:46 Monocytes (%) (Auto) 10.8 % (0.0-8.0) Eosinophils (%) (Auto) 6.2 % (0.0-4.0) Eosinophils # (Auto) 0.5 TH/MM3 (0-0.4) Blood Urea Nitrogen 19 MG/DL (7-18) Estimat Glomerular Filtration 58 ML/MIN (>89) Rate Random Glucose 70 MG/DL (74-106) Aspartate Amino Transf 14 U/L (15-37) (AST/SGOT) Troponin I LESS THAN 0.02 NG/ML (0.02-0.05) HDL Cholesterol 65.9 MG/DL (40.0-60.0) Imaging Last Impressions Head CT 06/07/16 1041 Signed Impressions: Service Date/Time: Tuesday, June 07, 2016 11:18 - CONCLUSION: No acute disease. Durga Marte MD FACR Head Magnetic Resonance Angiography 06/07/16 0000 Signed Impressions: Service Date/Time: Tuesday, June 07, 2016 14:21 - CONCLUSION: 1. No acute abnormality. Obinna Melendrez Jr., MD Carotid Artery Ultrasound 06/07/16 0000 Signed Impressions: Service Date/Time: Tuesday, June 07, 2016 13:17 - CONCLUSION: Negative examination for a hemodynamically significant carotid stenosis. Durga Marte MD Brain MRI 06/07/16 0000 Signed Impressions: Service Date/Time: Tuesday, June 07, 2016 14:21 - CONCLUSION: 1. No evidence of acute intracranial pathology. Chronic ischemic changes as above. Octavio Echavarria MD PE at Discharge GENERAL: This is a well-nourished, well-developed patient, in no apparent distress. CARDIOVASCULAR: Regular rate and rhythm without murmurs, gallops, or rubs. RESPIRATORY: Clear to auscultation. Breath sounds equal bilaterally. No wheezes , rales, or rhonchi. GASTROINTESTINAL: Abdomen soft, non-tender, nondistended. Normal active bowel sounds MUSCULOSKELETAL: Extremities without clubbing, cyanosis, or edema. NEURO: Alert & Oriented x4 to person, place, time, situation. Moves all ext x4 Hospital Course Pt was admitted after an episode of transient weakness in her left upper extremity while making her bed on the morning of admission. Her daughter felt that she had some slurred speech that morning when she talked to the pt on the phone while [facility] was present. Her arm weakness had resolved prior to [facility] arrival. Pt has not had any previous similar episodes. She has a strong family hx of CVA and does have risk factors, including CAD, HTN, hyperlipidemia. Head CT was negative. Brain MRI (06/07/16) --> NO acute findings. Brain MRA (06/07/16) --> NO acute findings. B/L Carotid US --> NO hemodynamically significant stenosis. Echocardiogram (06/07/16) --> EF 60-65%, no thrombus. Holter monitor -- > is pending. LDL 92 (06/08/16), continue Lipitor. Hgb A1C 5.2 (06/07/16). It is felt that the pts symptoms may have been related to a TIA. Pt was continued on her home dose of Metoprolol 25mg BID. Her BP remained elevated and she was started on Procardia xl 30mg daily with improvement in her BP. She was continued on ASA and Plavix 75 mg po daily was added to her regimen. Pt is being discharged home with C/PT She will need to followup with her PCP, Dr. Reardon, next week. Pt Condition on Discharge: Stable Discharge Disposition: Disch w/ Home Health Serv Discharge Instructions DIET: Follow Instructions for: Heart Healthy Diet Activities you can perform: Regular-No Restrictions Follow up Referrals: PCP Follow-up - [address] Rafi Reardon New Medications: Walker with Front Wheels (Walker with Front Wheels) 1 Mis Mis 1 EA .ROUTE DIRECTED #1 Ref 0 EA Clopidogrel (Plavix) 75 Mg Tab 75 MG PO DAILY TIA #30 TAB Nifedipine ER 24 HR (Nifedipine ER 24 HR) 30 Mg Tab 30 MG PO DAILY TIA #30 TAB Continued Medications: Aspirin (Aspirin Low Dose) 81 Mg Chew 81 MG CHEW DAILY Ref 0 TAB Atorvastatin (Lipitor) 40 Mg Tab 40 MG PO HS Cholesterol Management #30 Ref 0 TAB Estradiol (Estradiol) 0.5 Mg Tab 0.1 MG PO DAILY Estrogen Supplements #30 Ref 0 TAB Metoprolol Succinate ER 24 HR (Metoprolol Succinate ER 24 HR) 25 Mg Tab 25 MG PO DAILY #30 Ref 0 TAB Ranitidine (Ranitidine 75) 75 Mg Tab 75 MG PO BID Take 30 to 60 minutes before eating food or drinking beverages that cause heartburn. Heartburn Ref 0 TAB Tramadol (Tramadol) 50 Mg Tab 50 MG PO BID PRN PAIN Ref 0 TAB Additional Information Patient examined. Assessment and plan formulated with Coco Starr PA-C. I agree with the above. Coco Starr Jun 09, 2016 15:34 Daniel Wheatley DO Jun 11, 2016 10:48
== END 2016-06-09 17:12 | disposition home health service (06) ==
LOC: NEPA 10:20 → NEDA 12:38 → INTOOBSV 12:38 → N05B 20:10
PROVIDERS: ADMIT Hospitalist; ATTEND Hospitalist
DX: G45.9 Transient cerebral ischemic attack, unspecified (principal); I10 Essential (primary) hypertension; E78.5 Hyperlipidemia, unspecified; I25.10 Atherosclerotic heart disease of native coronary artery without angina pectoris; K21.9 Gastro-esophageal reflux disease without esophagitis; E78.00 Pure hypercholesterolemia, unspecified; M81.0 Age-related osteoporosis without current pathological fracture; Z96.642 Presence of left artificial hip joint; Z95.1 Presence of aortocoronary bypass graft; Z95.2 Presence of prosthetic heart valve; Z88.3 Allergy status to other anti-infective agents; Z91.041 Radiographic dye allergy status; Z91.013 Allergy to seafood; Z79.82 Long term (current) use of aspirin; Z82.3 Family history of stroke
CPT/HCPCS: 70450; 70544; 70551; 80053; 80061; 82550; 83036; 84484; 85025; 93005; 93306; 93880; G0378

== ENCOUNTER 2016-11-17 10:08 | Emergency (ER) | payer MEDICARE ==
[~2016-11-17] VITALS: Ht 157.5 cm; Wt 62.0 kg
[~2016-11-17 10:08] MED LIST changes: -ASPI81 PO; +ASPI81CH37 CHEW; -ATOR10 PO; +ESTR0.5T PO; -ESTR42.5V; +LIPI40TA PO; +METO25TA6 PO; +NIFE30TA8 PO; +PLAV75TA29 PO; +RANI1TAB5 PO; -TOPR25TA2 PO; +TRAM50TA PO; +WALKER WHEELS/F1 MIS
[2016-11-17 10:21] VITALS: BP 181/84; PULSE 73; RESP 16; TEMP 97.8; O2SAT 98
--- NOTE | 2016-11-17 10:39 | PD ---
HPI Chief Complaint: Fall Time Seen by Provider: 10:27 Travel History International Travel<30 days: No Contact w/Intl Traveler<30days: No Traveled to known affect area: No History of Present Illness HPI This 86-year-old female resides at an assisted living facility. He had a fall today and hit her head. Her son was advised to bring her for evaluation. She does not think that she had a loss of consciousness or did not witness the episode. She has a history of some mild dementia. She does take Plavix. She says that she feels a pressure in her head. She has no numbness or tingling. She has no neck pain. She has no other injury PFSH Past Medical History Hx Anticoagulant Therapy: Yes (PLAVIX) Arthritis: Yes Cancer: No Cardiac Catheterization: Yes Cardiovascular Problems: Yes (BYPASS/ HTN) High Cholesterol: Yes Diminished Hearing: No Endocrine: No Hypertension: Yes Immune Disorder: No Kidney Stones: Yes Neurologic: No Psychiatric: No Reproductive: No Respiratory: No Past Surgical History Abdominal Surgery: Yes Appendectomy: Yes Cardiac Surgery: Yes Coronary Artery Bypass Graft: Yes (4 VESSEL AND A VALVE REPLACED) Gynecologic Surgery: Yes (HYSTERECTOMY) Hysterectomy: Yes Social History Alcohol Use: Yes (RARELY) Tobacco Use: No Substance Use: No Allergies-Medications (Allergen,Severity, Reaction): Coded Allergies: iodine (Unverified Allergy, Severe, TONGUE SWELLS, HIVES, 11/17/16) potassium iodide (Unverified Allergy, Severe, TONGUE SWELLS, HIVES, 11/17/16 ) povidone-iodine (Unverified Allergy, Severe, TONGUE SWELLS, HIVES, 11/17/16) shrimp (Unverified Allergy, Severe, SWELLING OF TROAT AND TONGUE, 11/17/16) sodium iodide (Unverified Allergy, Severe, TONGUE SWELLS, HIVES, 11/17/16) sodium iodide (Unverified Allergy, Severe, TONGUE SWELLS, HIVES, 11/17/16) iohexol (Unverified Allergy, Mild, 11/17/16) Reported Meds & Prescriptions Reported Meds & Active Scripts Active Plavix (Clopidogrel Bisulfate) 75 Mg Tab 75 Mg PO DAILY Walker with Front Wheels (Device) 1 Mis Mis 1 Ea .ROUTE DIRECTED Reported Metoprolol Succinate ER 24 HR (Metoprolol Succinate) 25 Mg Tab 25 Mg PO DAILY Review of Systems General / Constitutional: No: Fever, Chills Eyes: No: Diploplia HENT: Positive: Headaches Cardiovascular: No: Chest Pain or Discomfort, Palpitations Respiratory: No: Cough, Shortness of Breath Gastrointestinal: No: Nausea, Vomiting Genitourinary: No: Frequency, Dysuria Musculoskeletal: No: Myalgias, Arthralgias Skin: No Rash, No Itching Neurologic: No: Focal Abnormalities Psychiatric: No: Anxiety Endocrine: No: Heat Intolerance Hematologic/Lymphatic: No: Easy Bruising Physical Exam Narrative GENERAL: Well-developed female SKIN: Focused skin assessment warm/dry. HEAD: Atraumatic. Normocephalic. EYES: Pupils equal and round. No scleral icterus. No injection or drainage. ENT: No nasal bleeding or discharge. Mucous membranes pink and moist. NECK: Trachea midline. No JVD. CARDIOVASCULAR: Regular rate and rhythm. No murmur appreciated. RESPIRATORY: No accessory muscle use. Clear to auscultation. Breath sounds equal bilaterally. GASTROINTESTINAL: Abdomen soft, non-tender, nondistended. Hepatic and splenic margins not palpable. MUSCULOSKELETAL: No obvious deformities. No clubbing. No cyanosis. No edema. NEUROLOGICAL: Awake and alert. No obvious cranial nerve deficits. Motor grossly within normal limits. Normal speech. She is not oriented to the date PSYCHIATRIC: Appropriate mood and affect; i Data Data Last Documented VS Vital Signs Date Time Temp Pulse Resp B/P (MAP) Pulse Ox O2 Delivery O2 Flow Rate FiO2 11/17/16 10:47 72 16 98 Room Air 11/17/16 10:21 97.8 181/84 (116) Orders Orders Ct Brain W/O Iv Contrast(Rout) (11/17/16 10:32) [facility] Medical Decision Making Medical Screen Exam Complete: Yes Emergency Medical Condition: Yes Medical Record Reviewed: Yes Differential Diagnosis Differential includes skull fracture, intracerebral hemorrhage, contusion Narrative Course X-rays negative for fracture or hemorrhage. They she is stable for discharge Diagnosis Primary Impression: Contusion of head Qualified Codes: S00.93XA - Contusion of unspecified part of head, initial encounter Disposition: 01 DISCHARGE HOME Condition: Stable Antione Lozano MD Nov 17, 2016 10:39
--- NOTE | 2016-11-17 11:07 | RADRPT ---
EXAM DATE/TIME: 11/17/2016 10:47 [place] COMPARISON: No previous studies available for comparison. INDICATIONS : Trauma. Fall. Hit back of head. RADIATION DOSE: 61.56 CTDIvol (mGy) MEDICAL HISTORY : Cardiovascular disease. Hypertension. SURGICAL HISTORY : CABG Appendectomy.Hysterectomy. ENCOUNTER: Initial ACUITY: 1 day PAIN SCALE: 2/10 LOCATION: cranial TECHNIQUE: Multiple contiguous axial images were obtained of the head. Using automated exposure control and adj ustment of the mA and/or kV according to patient size, radiation dose was kept as low as reasonably a chievable to obtain optimal diagnostic quality images. DICOM format image data is available electro nically for review and comparison. FINDINGS: There is no evidence for intracranial hemorrhage, mass effect, mass lesions, or edema. The visualize d bony structures appear intact. Moderate degree of brain atrophy is seen. Moderate periventricular white matter changes are seen nonspecific mostly consistent with chronic small vessel ischemic change s. There are no signs of acute infarction for technique. CONCLUSION: Chronic and small vessel ischemic changes without any evidence for acute hemorrhage o r mass effect. Mark Cruz MD on November 17, 2016 at 11:04 Board Certified Radiologist. This report was verified electronically.
[2016-11-17 11:40] VITALS: BP 167/80
== END 2016-11-17 11:48 | disposition home or self-care (01) ==
LOC: PHED 10:08
DX: S00.93XA Contusion of unspecified part of head, initial encounter (principal); I10 Essential (primary) hypertension; F03.90 Unspecified dementia, unspecified severity, without behavioral disturbance, psychotic disturbance, mood disturbance, and anxiety; Z79.01 Long term (current) use of anticoagulants; Z95.1 Presence of aortocoronary bypass graft; Z95.2 Presence of prosthetic heart valve; W19.XXXA Unspecified fall, initial encounter; Y92.129 Unspecified place in nursing home as the place of occurrence of the external cause; Y99.8 Other external cause status
CPT/HCPCS: 70450

== ENCOUNTER 2017-05-17 05:44 | Emergency (ER) | payer MEDICARE ==
[~2017-05-17] VITALS: Ht 160 cm; Wt 61.5 kg
[~2017-05-17 05:44] MED LIST changes: -ASPI81CH37 CHEW; -ESTR0.5T PO; -LIPI40TA PO; +METO1TAB42 PO; -METO25TA6 PO; -NIFE30TA8 PO; -RANI1TAB5 PO; -TRAM50TA PO
[2017-05-17 05:45] VITALS: BP 161/71; PULSE 80; RESP 16; TEMP 97.6; O2SAT 96
--- NOTE | 2017-05-17 06:17 | PD ---
HPI Chief Complaint: GI Complaint Time Seen by Provider: 06:13 Travel History International Travel<30 days: No Contact w/Intl Traveler<30days: No Traveled to known affect area: No History of Present Illness HPI The patient is an 87-year-old female that lives in an RETIREMENT who complains of nausea, vomiting and diarrhea for 2 hours. She arrived with a EVAC in the back gave her 4 mg of Zofran IV and her nausea subsided. She states she is thirsty. There was no blood in the vomitus or diarrhea. She has not had any fever. PFSH Past Medical History Hx Anticoagulant Therapy: Yes (PLAVIX) Arthritis: Yes (hips) Cancer: No Cardiac Catheterization: Yes Cardiovascular Problems: Yes High Cholesterol: Yes Cerebrovascular Accident: Yes (cva) Coronary Artery Disease: Yes Dementia: Yes Diminished Hearing: No Endocrine: No Gastrointestinal Disorders: No Hypertension: Yes Immune Disorder: No Kidney Stones: Yes Neurologic: No Psychiatric: No Reproductive: No Respiratory: No ?: Not Menopausal: Yes Past Surgical History Abdominal Surgery: Yes Appendectomy: Yes Cardiac Surgery: Yes Coronary Artery Bypass Graft: Yes (4 VESSEL AND A VALVE REPLACED) Gynecologic Surgery: Yes (HYSTERECTOMY) Hysterectomy: Yes Tympanostomy Tube: Yes Social History Alcohol Use: Yes (RARELY) Tobacco Use: No (hx of cigs smoking teenager years) Substance Use: No Allergies-Medications (Allergen,Severity, Reaction): Coded Allergies: iodine (Unverified Allergy, Severe, TONGUE SWELLS, HIVES, 11/17/16) potassium iodide (Unverified Allergy, Severe, TONGUE SWELLS, HIVES, 11/17/16 ) povidone-iodine (Unverified Allergy, Severe, TONGUE SWELLS, HIVES, 11/17/16) shrimp (Unverified Allergy, Severe, SWELLING OF TROAT AND TONGUE, 11/17/16) sodium iodide (Unverified Allergy, Severe, TONGUE SWELLS, HIVES, 11/17/16) sodium iodide (Unverified Allergy, Severe, TONGUE SWELLS, HIVES, 11/17/16) iohexol (Unverified Allergy, Mild, 11/17/16) Reported Meds & Prescriptions Reported Meds & Active Scripts Active Zofran (Ondansetron HCl) 4 Mg Tab 4 Mg PO Q6HR PRN Plavix (Clopidogrel Bisulfate) 75 Mg Tab 75 Mg PO DAILY Walker with Front Wheels (Device) 1 Mis Mis 1 Ea .ROUTE DIRECTED Reported Metoprolol Succinate ER 24 HR (Metoprolol Succinate) 25 Mg Tab 25 Mg PO DAILY Review of Systems Except as stated in HPI: all other systems reviewed are Neg Physical Exam Narrative GENERAL: The patient is alert, oriented 3, minimally dehydrated appearing in no apparent distress. Her vital signs show blood pressure 161/71 but are otherwise normal. SKIN: Focused skin assessment warm/dry. HEAD: Atraumatic. Normocephalic. EYES: Pupils equal and round. No scleral icterus. No injection or drainage. ENT: No nasal bleeding or discharge. Mucous membranes pink and moist. NECK: Trachea midline. No JVD. CARDIOVASCULAR: Regular rate and rhythm. No murmur appreciated. RESPIRATORY: No accessory muscle use. Clear to auscultation. Breath sounds equal bilaterally. GASTROINTESTINAL: Abdomen soft, non-tender, nondistended. Hepatic and splenic margins not palpable. No guarding or rebound is present. MUSCULOSKELETAL: No obvious deformities. No clubbing. No cyanosis. No edema. NEUROLOGICAL: Awake and alert. No obvious cranial nerve deficits. Motor grossly within normal limits. Normal speech. PSYCHIATRIC: Appropriate mood and affect; insight and judgment normal. Data Data Last Documented VS Vital Signs Date Time Temp Pulse Resp B/P (MAP) Pulse Ox O2 Delivery O2 Flow Rate FiO2 05/17/17 06:39 78 16 165/65 (98) 98 Room Air 05/17/17 05:45 97.6 Orders Orders Complete Blood Count With Diff (05/17/17 06:04) Comprehensive Metabolic Panel (05/17/17 06:04) B-Type Natriuretic Peptide (05/17/17 06:04) Act Partial Throm Time (Ptt) (05/17/17 06:04) Sodium Chlor 0.9% 1000 Ml Inj (Ns 1000 M (05/17/17 06:15) Lipase (05/17/17 06:00) Labs Laboratory Tests Test 05/17/17 06:00 White Blood Count 14.7 TH/MM3 Red Blood Count 4.00 MIL/MM3 Hemoglobin 11.5 GM/DL Hematocrit 35.7 % Mean Corpuscular Volume 89.2 FL Mean Corpuscular Hemoglobin 28.8 PG Mean Corpuscular Hemoglobin Concent 32.3 % Red Cell Distribution Width 12.9 % Platelet Count 279 TH/MM3 Mean Platelet Volume 8.5 FL Neutrophils (%) (Auto) 88.9 % Lymphocytes (%) (Auto) 5.9 % Monocytes (%) (Auto) 3.1 % Eosinophils (%) (Auto) 1.8 % Basophils (%) (Auto) 0.3 % Neutrophils # (Auto) 13.0 TH/MM3 Lymphocytes # (Auto) 0.9 TH/MM3 Monocytes # (Auto) 0.5 TH/MM3 Eosinophils # (Auto) 0.3 TH/MM3 Basophils # (Auto) 0.0 TH/MM3 CBC Comment DIFF FINAL Differential Comment Activated Partial Thromboplast Time 22.1 SEC Blood Urea Nitrogen 34 MG/DL Creatinine 1.00 MG/DL Random Glucose 100 MG/DL Total Protein 7.4 GM/DL Albumin 3.8 GM/DL Calcium Level 8.8 MG/DL Alkaline Phosphatase 127 U/L Aspartate Amino Transf (AST/SGOT) 17 U/L Alanine Aminotransferase (ALT/SGPT) 15 U/L Total Bilirubin 0.3 MG/DL Sodium Level 141 MEQ/L Potassium Level 3.5 MEQ/L Chloride Level 108 MEQ/L Carbon Dioxide Level 25.0 MEQ/L Anion Gap 8 MEQ/L Estimat Glomerular Filtration Rate 52 ML/MIN B-Type Natriuretic Peptide 183 PG/ML Lipase 338 U/L MDM Medical Decision Making Medical Screen Exam Complete: Yes Emergency Medical Condition: Yes Medical Record Reviewed: Yes Interpretation(s) The CBC shows white count of 14,700 with a hemoglobin of 11.5 and hematocrit of 35.7. There are 89% neutrophils. The complete metabolic profile shows a BUN of 34, GFR 52, alkaline phosphatase of 127 but is otherwise unremarkable. The APTT is 22.1. Differential Diagnosis Viral gastroenteritis, colitis, cholecystitis, dehydration Narrative Course The patient appears to have viral gastroenteritis. She also has mild dehydration. She is to increase her liquid intake and follow up with her [facility] care physician next week. Diagnosis Primary Impression: Gastroenteritis Additional Impression: Mild dehydration Additional Instructions: As we discussed, take the Zofran every 4-6 hours as needed for nausea. Drink clear liquids like Gatorade to hydrate yourself. Follow-up with your primary care physician next week. Scripts Ondansetron (Zofran) 4 Mg Tab 4 MG PO Q6HR Y for NAUSEA OR VOMITING, #30 TAB 0 Refills Prov: Balta Escobar MD 05/17/17 Balta Escobar MD May 17, 2017 06:17
[2017-05-17] MEDS: SODIUM CHLOR 0.9% 1000 ML INJ 1,000 ML IV SCH ×2 (06:21→06:45)
[2017-05-17] MEDS ORDERED: ZOFR4TAB PO (06:21)
[2017-05-17 06:23] LABS: BASOPHIL % 0.3 % (0.0-2.0); EOSINOPHIL # 0.3 TH/MM3 (0-0.4); EOSINOPHIL % 1.8 % (0.0-4.0); HEMATOCRIT 35.7 % (35.0-46.0); HEMOGLOBIN 11.5 GM/DL (11.6-15.3); LYMPH % 5.9 % (9.0-44.0); LYMPHOCYTE # 0.9 TH/MM3 (1.0-4.8); MEAN CELL VOLUME 89.2 FL (80.0-100.0); MEAN CORPUSCULAR HEMOGLOBIN 28.8 PG (27.0-34.0); MEAN CORPUSCULAR HGB CONC 32.3 % (32.0-36.0); MEAN PLATELET VOLUME 8.5 FL (7.0-11.0); MONO % 3.1 % (0.0-8.0); MONOCYTE # 0.5 TH/MM3 (0-0.9); NEUT % 88.9 % (16.0-70.0); PLATELET COUNT 279 TH/MM3 (150-450); RED CELL DISTRIBUTION WIDTH 12.9 % (11.6-17.2); WHITE BLOOD COUNT 14.7 TH/MM3 (4.0-11.0)
[2017-05-17 06:29] LABS: CHLORIDE 108 MEQ/L (98-107); SODIUM (NA) 141 MEQ/L (136-145)
[2017-05-17 06:32] LABS: CALCIUM 8.8 MG/DL (8.5-10.1)
[2017-05-17 06:33] LABS: ALBUMIN 3.8 GM/DL (3.4-5.0); BLOOD UREA NITROGEN 34 MG/DL (7-18); GLUCOSE,RANDOM 100 MG/DL (74-106)
[2017-05-17 06:36] LABS: ALT (GPT) 15 U/L (10-53); AST (GOT) 17 U/L (15-37); GLOMERULAR FILTRATION RATE 52 ML/MIN (>89)
[2017-05-17 06:37] LABS: TOTAL BILIRUBIN ADULT 0.3 MG/DL (0.2-1.0); TOTAL PROTEIN 7.4 GM/DL (6.4-8.2)
[2017-05-17 06:39] VITALS: BP 165/65; PULSE 78; RESP 16; O2SAT 98
[2017-05-17 06:39] LABS: ALKALINE PHOSPHATASE 127 U/L (45-117)
[2017-05-17 06:50] VITALS: BP 165/65; PULSE 76; RESP 18; O2SAT 96
== END 2017-05-17 07:50 | disposition home or self-care (01) ==
LOC: PHED 05:44
DX: A08.4 Viral intestinal infection, unspecified (principal); E86.0 Dehydration; I10 Essential (primary) hypertension; I25.10 Atherosclerotic heart disease of native coronary artery without angina pectoris; E78.00 Pure hypercholesterolemia, unspecified; F03.90 Unspecified dementia, unspecified severity, without behavioral disturbance, psychotic disturbance, mood disturbance, and anxiety; M19.90 Unspecified osteoarthritis, unspecified site; Z86.73 Personal history of transient ischemic attack (TIA), and cerebral infarction without residual deficits; Z87.442 Personal history of urinary calculi; Z95.1 Presence of aortocoronary bypass graft; Z88.8 Allergy status to other drugs, medicaments and biological substances; Z79.01 Long term (current) use of anticoagulants; Z79.899 Other long term (current) drug therapy
CPT/HCPCS: 80053; 83690; 83880; 85025; 85730; 96360; 99284; J7030

== ENCOUNTER 2017-05-18 03:04 | Inpatient (IN) | payer MEDICARE ==
[~2017-05-18] VITALS: Ht 157.5 cm; Wt 65.1 kg
[2017-05-18] VITALS (11 sets, daily range): BP systolic 133–159; BP diastolic 60–78; PULSE 70–113; RESP 17–21; TEMP 97–98.8; O2SAT 95–98
[~2017-05-18 03:04] MED LIST changes: +ZOFR4TAB PO
[2017-05-18] MEDS ORDERED: SODIUM CHLOR 0.9% 1000 ML INJ 1,000 ML IV ONE (03:55)
[2017-05-18 04:33] LABS: AUTOMATED NEUTROPHIL # 8.5 TH/MM3 (1.8-7.7); BASOPHIL % 0.2 % (0.0-2.0); EOSINOPHIL # 0.1 TH/MM3 (0-0.4); EOSINOPHIL % 0.8 % (0.0-4.0); HEMATOCRIT 31.5 % (35.0-46.0); HEMOGLOBIN 10.6 GM/DL (11.6-15.3); LYMPH % 6.2 % (9.0-44.0); LYMPHOCYTE # 0.6 TH/MM3 (1.0-4.8); MEAN CELL VOLUME 88.7 FL (80.0-100.0); MEAN CORPUSCULAR HEMOGLOBIN 29.8 PG (27.0-34.0); MEAN CORPUSCULAR HGB CONC 33.6 % (32.0-36.0); MONO % 5.8 % (0.0-8.0); MONOCYTE # 0.6 TH/MM3 (0-0.9); PLATELET COUNT 225 TH/MM3 (150-450); RED BLOOD COUNT 3.55 MIL/MM3 (4.00-5.30); RED CELL DISTRIBUTION WIDTH 13.5 % (11.6-17.2); WHITE BLOOD COUNT 9.8 TH/MM3 (4.0-11.0)
[2017-05-18 05:15] LABS: ALBUMIN 3.3 GM/DL (3.4-5.0); ALT (GPT) 21 U/L (10-53); AST (GOT) 27 U/L (15-37); BICARBONATE 21.4 MEQ/L (21.0-32.0); BLOOD UREA NITROGEN 20 MG/DL (7-18); CALCIUM 7.8 MG/DL (8.5-10.1); CHLORIDE 108 MEQ/L (98-107); CREATININE 0.79 MG/DL (0.50-1.00); GLOMERULAR FILTRATION RATE 69 ML/MIN (>89); GLUCOSE,RANDOM 92 MG/DL (74-106); MAGNESIUM 1.7 MG/DL (1.5-2.5); SODIUM (NA) 140 MEQ/L (136-145)
[2017-05-18 05:17] LABS: ALKALINE PHOSPHATASE 93 U/L (45-117); TOTAL BILIRUBIN ADULT 0.4 MG/DL (0.2-1.0); TOTAL PROTEIN 6.5 GM/DL (6.4-8.2)
[2017-05-18] MEDS: SODIUM CHLORIDE 0.9% FLUSH 10 ML FLUSH IVF PRN (05:23)
[2017-05-18] MEDS: ONDANSETRON HCL 4 MG/2 ML VIAL IV PUSH ONE ×2 (05:24→06:13)
[2017-05-18 05:35] LABS: BACTERIA, URINE OCC /hpf; BILIRUBIN, URINE NEG (NEG); BLOOD, URINE TRACE (NEG); GLUCOSE,URINE NEG (NEG); KETONE, URINE NEG (NEG); MUCUS URINE FEW /lpf (OCC); NITRITE,URINE NEG (NEG); PH, URINE 5.5 (5.0-8.5); SQUAMOUS EPITHELIAL CELL URINE 1 /hpf (0-5); URINE COLOR LIGHT-YELLOW (YELLW/STRAW); URINE LEUKOCYTE ESTERASE MOD (NEG)
--- NOTE | 2017-05-18 06:38 | PD ---
HPI Chief Complaint: GI Complaint Time Seen by Provider: 03:55 Travel History International Travel<30 days: No Contact w/Intl Traveler<30days: No Traveled to known affect area: No History of Present Illness HPI 87-year-old female presents to the emergency department by EMS transport from her assisted living facility for generalized weakness. Patient had 2 days of nausea vomiting and copious diarrhea. No recent hematemesis coffee-ground emesis melena hematochezia. No fever or chills. No abdominal pain. No chest pain or shortness of breath. Patient was recently seen yesterday morning for 2 hours of nausea vomiting diarrhea at [place] emergency department was treated with IV fluids and Zofran responded well to intervention and was stable for outpatient management. Patient was returned back to her assisted living facility where she has progressively gotten weaker and she has had ongoing copious frequent watery diarrhea but has had better control of her nausea and vomiting patient had poor oral intake reportedly. Patient typically uses a walker she has some balance disturbance and assisted living facility staff was having to help her every time to get up to get to the bathroom as she progressively weakened as she was not able to tolerate ambulation adequately with her walker. According to chair installer report upon their initial assessment patient was tachycardic with reportedly a heart rate of 160 bpm. Patient was normotensive. Patient received 1 L of normal saline and admitted to the hospital heart rate normalized and patient presents here complaining of diarrhea. Patient denies any recent antibiotic use. No other residents or family members with similar symptoms reportedly. Patient does take Plavix for prior history of CVA TIA but has had no report of bleeding no gum bleeding no epistaxis no hemoptysis no hematemesis no coffee-ground emesis no melena no hematochezia no bruising and no hematuria. There is been no injury or fall. [facility] Past Medical History Narrative Medical Arthritis dementia CVA CAD hypertension CABG no tobacco use nursing notes reviewed Hx Anticoagulant Therapy: Yes (PLAVIX) Arthritis: Yes (hips) Cancer: No Cardiac Catheterization: Yes Cardiovascular Problems: Yes High Cholesterol: Yes Cerebrovascular Accident: Yes Coronary Artery Disease: Yes Dementia: Yes Diminished Hearing: No Endocrine: No Gastrointestinal Disorders: No Hypertension: Yes Immune Disorder: No Kidney Stones: Yes Neurologic: No Psychiatric: No Reproductive: No Respiratory: No Immunizations Current: Yes Tetanus Vaccination: < 5 Years Influenza Vaccination: Yes ?: Not Menopausal: Yes Past Surgical History Abdominal Surgery: Yes Appendectomy: Yes Cardiac Surgery: Yes Coronary Artery Bypass Graft: Yes (4 VESSEL AND A VALVE REPLACED) Gynecologic Surgery: Yes (HYSTERECTOMY) Hysterectomy: Yes Tympanostomy Tube: Yes Social History Alcohol Use: Yes (RARELY) Tobacco Use: No (hx of cigs smoking teenager years) Substance Use: No Allergies-Medications (Allergen,Severity, Reaction): Coded Allergies: iodine (Verified Allergy, Severe, TONGUE SWELLS, HIVES, 05/18/17) potassium iodide (Verified Allergy, Severe, TONGUE SWELLS, HIVES, 05/18/17) povidone-iodine (Verified Allergy, Severe, TONGUE SWELLS, HIVES, 05/18/17) shrimp (Verified Allergy, Severe, SWELLING OF TROAT AND TONGUE, 05/18/17) sodium iodide (Verified Allergy, Severe, TONGUE SWELLS, HIVES, 05/18/17) iohexol (Verified Allergy, Mild, 05/18/17) acetaminophen (Verified Allergy, Unknown, 05/18/17) oxycodone (Verified Allergy, Unknown, 05/18/17) Reported Meds & Prescriptions Reported Meds & Active Scripts Active Zofran (Ondansetron HCl) 4 Mg Tab 4 Mg PO Q6HR PRN Plavix (Clopidogrel Bisulfate) 75 Mg Tab 75 Mg PO DAILY Walker with Front Wheels (Device) 1 Mis Mis 1 Ea .ROUTE DIRECTED Reported Metoprolol Succinate ER 24 HR (Metoprolol Succinate) 25 Mg Tab 25 Mg PO DAILY Review of Systems Except as stated in HPI: all other systems reviewed are Neg General / Constitutional: No: Fever, Chills HENT: No: Congestion Cardiovascular: No: Chest Pain or Discomfort Respiratory: No: Cough, Shortness of Breath Gastrointestinal: Positive: Nausea, Vomiting, Diarrhea, No: Abdominal Pain Genitourinary: Positive: Decreased Urinary Output, No: Dysuria Musculoskeletal: No: Myalgias, Arthralgias Skin: No Rash Neurologic: Positive: Weakness, Dizziness, No: Syncope, Focal Abnormalities, Coordination Problem Psychiatric: No: Anxiety Hematologic/Lymphatic: No: Easy Bruising Physical Exam Narrative GENERAL: Well-developed elderly female in no acute distress no respiratory distress SKIN: Warm and dry. HEAD: Normocephalic. EYES: No scleral icterus. No injection or drainage. NECK: Supple, trachea midline. No JVD or lymphadenopathy. CARDIOVASCULAR: Regular rate and rhythm without murmurs, gallops, or rubs. RESPIRATORY: Breath sounds equal bilaterally. No accessory muscle use. GASTROINTESTINAL: Abdomen soft, non-tender, nondistended. MUSCULOSKELETAL: No cyanosis, or edema. BACK: Nontender without obvious deformity. No CVA tenderness. Data Data Last Documented VS Vital Signs Date Time Temp Pulse Resp B/P (MAP) Pulse Ox O2 Delivery O2 Flow Rate FiO2 05/18/17 05:15 88 20 133/60 (84) 98 Room Air 05/18/17 03:51 98.3 Orders Orders Complete Blood Count With Diff (05/18/17 03:55) Comprehensive Metabolic Panel (05/18/17 03:55) Urinalysis - C+S If Indicated (05/18/17 03:55) Lipase (05/18/17 03:55) Iv Access Insert/Monitor (05/18/17 03:55) Ecg Monitoring (05/18/17 03:55) Oximetry (05/18/17 03:55) Ondansetron Inj (Zofran Inj) (05/18/17 04:00) Sodium Chlor 0.9% 1000 Ml Inj (Ns 1000 M (05/18/17 03:55) Sodium Chloride 0.9% Flush (Ns Flush) (05/18/17 04:00) C Diff Toxin Pcr (05/18/17 03:55) Enteric Path (Stool) (05/18/17 03:55) Magnesium (Mg) (05/18/17 03:55) Admit Order (Ed Use Only) (05/18/17 ) [employer]ezza Architect / Telemetry [id number] (05/18/17 06:18) Activity Oob With Assistance (05/18/17 06:18) Notify Dr: Other (05/18/17 06:18) Labs Laboratory Tests Test 05/18/17 04:10 05/18/17 05:09 White Blood Count 9.8 TH/MM3 Red Blood Count 3.55 MIL/MM3 Hemoglobin 10.6 GM/DL Hematocrit 31.5 % Mean Corpuscular Volume 88.7 FL Mean Corpuscular Hemoglobin 29.8 PG Mean Corpuscular Hemoglobin Concent 33.6 % Red Cell Distribution Width 13.5 % Platelet Count 225 TH/MM3 Mean Platelet Volume 8.0 FL Neutrophils (%) (Auto) 87.0 % Lymphocytes (%) (Auto) 6.2 % Monocytes (%) (Auto) 5.8 % Eosinophils (%) (Auto) 0.8 % Basophils (%) (Auto) 0.2 % Neutrophils # (Auto) 8.5 TH/MM3 Lymphocytes # (Auto) 0.6 TH/MM3 Monocytes # (Auto) 0.6 TH/MM3 Eosinophils # (Auto) 0.1 TH/MM3 Basophils # (Auto) 0.0 TH/MM3 CBC Comment DIFF FINAL Differential Comment Stool C. difficile Toxin (PCR) NEGATIVE Stl C. difficile Toxin Epiderm 027 PRESUMPTIVE NEGATIVE Blood Urea Nitrogen 20 MG/DL Creatinine 0.79 MG/DL Random Glucose 92 MG/DL Total Protein 6.5 GM/DL Albumin 3.3 GM/DL Calcium Level 7.8 MG/DL Magnesium Level 1.7 MG/DL Alkaline Phosphatase 93 U/L Aspartate Amino Transf (AST/SGOT) 27 U/L Alanine Aminotransferase (ALT/SGPT) 21 U/L Total Bilirubin 0.4 MG/DL Sodium Level 140 MEQ/L Potassium Level 3.0 MEQ/L Chloride Level 108 MEQ/L Carbon Dioxide Level 21.4 MEQ/L Anion Gap 11 MEQ/L Estimat Glomerular Filtration Rate 69 ML/MIN Lipase 267 U/L Urine Color LIGHT-YELLOW Urine Turbidity CLEAR Urine pH 5.5 Urine Specific [place] 1.012 Urine Protein TRACE mg/dL Urine Glucose (UA) NEG mg/dL Urine Ketones NEG mg/dL Urine Occult Blood TRACE Urine Nitrite NEG Urine Bilirubin NEG Urine Urobilinogen LESS THAN 2.0 MG/DL Urine Leukocyte Esterase MOD Urine RBC 3 /hpf Urine WBC 2 /hpf Urine Squamous Epithelial Cells 1 /hpf Urine Bacteria OCC /hpf Urine Mucus FEW /lpf Microscopic Urinalysis Comment CULT NOT INDICATED MDM Medical Decision Making Medical Screen Exam Complete: Yes Emergency Medical Condition: Yes Medical Record Reviewed: Yes Interpretation(s) CBC & BMP Diagram 05/18/17 04:10 Total Protein 6.5 #, Albumin 3.3 L, Calcium Level 7.8 #L, Magnesium Level 1.7, Alkaline Phosphatase 93, Aspartate Amino Transf (AST/SGOT) 27, Alanine Aminotransferase (ALT/SGPT) 21, Total Bilirubin 0.4 Vital Signs Date Time Temp Pulse Resp B/P (MAP) Pulse Ox O2 Delivery O2 Flow Rate FiO2 05/18/17 05:15 88 20 133/60 (84) 98 Room Air 05/18/17 04:30 92 20 147/67 (93) 96 Room Air 05/18/17 04:15 90 21 149/63 (91) 96 Room Air 05/18/17 03:51 98.3 90 20 152/64 (93) 95 Room Air 05/18/17 03:46 98.0 98 20 152/64 (93) 98 Differential Diagnosis Generalized weakness, electrolyte disturbance, dehydration, renal insufficiency , arrhythmia, ACS, MA, UTI, colitis Narrative Course Patient placed on ad clerk with continuous pulse oximetry IV access obtained specimens collected and sent for resulting Patient's blood pressure improved after EMS reportedly administered 1 L of normal saline Lab values grossly within normal range except for hypokalemia potassium 3.0 patient given oral replacement Due to marked generalized weakness reported by patient's daughter and requiring assistance to obtain urine specimen and stool specimen patient will be placed in observation status call placed to [facility] on-call provider Physician Communication Physician Communication discussed with DR Santa Diagnosis Primary Impression: Generalized weakness Additional Impressions: Hypokalemia Vomiting and diarrhea Admitting Information Admitting Physician Requests: Observation Kendra Sewell MD May 18, 2017 06:38
[2017-05-18] MEDS ORDERED: POTASSIUM CHLORIDE 20 MEQ CONTROLLED RELEASE TAB PO ONE (06:45)
[2017-05-18] MEDS: METOPROLOL SUCCINATE 25 MG EXTENDED RELEASE TAB PO SCH (07:59)
[2017-05-18] MEDS: CLOPIDOGREL 75 MG TAB PO SCH (07:59)
--- NOTE | 2017-05-18 08:37 | HHI.HP ---
HPI Service CP Hospitalists Primary Care Physician Home Docs, Admission Diagnosis generalized weakness; acute diarrheal illness; hypokalemia Chief Complaint: N/V/D Travel History International Travel<30 Days: No Contact w/Intl Traveler <30 Da: No Traveled to Known Affected Are: No History of Present Illness Mrs. Whaley is a pleasant 87 y/o WF with HTN, Hyperlipidemia, Hx of CVA/TIA ( 2017), CAD, AAA, Hx of aortic valve stenosis s/p AVR with bioprosthetic valve, and memory deficits. She was brought to the ED at [facility] on 05/17/17 with acute onset of N/V and diarrhea that began suddenly around 0300 that morning. She was treated with IVF and Zofran in the ED in [place] with symptomatic improvement. Her labs at that time noted WBC count 14.7, Hgb 11.5, BUN 34, Cr 1.0. She was diagnosed with viral gastroenteritis and sent back to her [facility]. Her daughter reports that after returning home the pt again developed diarrhea, N/V which was persistent and the pt was becoming increasingly weak so pt was brought back to the ER at [facility] on early this morning. Pt again was given Zofran and IVF with improvement in her N/V. She did have some diarrhea in the ER and stool was checked for C. diff which was negative. Pt is a rather poor historian so the history was obtained over the phone from the pts daughter, Lianna. She denies any ill contacts, recent travel, abnormal food intake, recent antibiotic use, or any medication changes. Pt denies any abd pain, melena , BRBPR, hematemesis, urinary frequency or dysuria. No previous similar episodes. Review of Systems ROS Limitations: Poor Historian Constitutional: DENIES: Fever, Chills Eyes: DENIES: Vision loss Ears, nose, mouth, throat: DENIES: Hearing loss Respiratory: DENIES: Cough, Shortness of breath Cardiovascular: DENIES: Chest pain, Palpitations, Lower Extremity Edema Gastrointestinal: COMPLAINS OF: Diarrhea, Nausea, Vomiting, DENIES: Abdominal pain, Black stools, Bloody stools Genitourinary: DENIES: Urinary frequency, Hematuria Musculoskeletal: DENIES: Back pain, Neck pain Integumentary: DENIES: Rash Neurologic: DENIES: Headache Psychiatric: DENIES: Confusion Past Family Social History Past Medical History HTN Hyperlipidemia Hx of CVA/TIA (2017) CAD AAA Aortic valve stenosis s/p AVR with bioprosthetic valve Memory deficits Chronic low back pain Osteoarthritis Osteoporosis Hx of BCC on face PACs/PVCs 2D echo (06/2016): - Estimated EF 45% - Grade 1 diastolic dysfunction - Prosthetic tissue aortic valve with mild possible paravalvular leak - Mild mitral regurgitation, mild tricuspid regurgitation with PA systolic pressure around 32mmHg Past Surgical History AVR in 1999 CABG x 4 in 2006 Appendectomy KRISTINE Left total hip replacement FRANCISCO with BSO Bladder sling placement for stress incontinence Varicose vein ligation Reported Medications Zofran 4 Mg PO Q6HR PRN Plavix 75 Mg PO DAILY Metoprolol Succinate ER 24 HR 25 Mg PO DAILY Allergies: Coded Allergies: iodine (Verified Allergy, Severe, TONGUE SWELLS, HIVES, 05/18/17) potassium iodide (Verified Allergy, Severe, TONGUE SWELLS, HIVES, 05/18/17) povidone-iodine (Verified Allergy, Severe, TONGUE SWELLS, HIVES, 05/18/17) shrimp (Verified Allergy, Severe, SWELLING OF TROAT AND TONGUE, 05/18/17) sodium iodide (Verified Allergy, Severe, TONGUE SWELLS, HIVES, 05/18/17) iohexol (Verified Allergy, Mild, 05/18/17) acetaminophen (Verified Allergy, Unknown, 05/18/17) oxycodone (Verified Allergy, Unknown, 05/18/17) Family History Noncontributory Social History No reported alcohol, tobacco or illicit drug use [facility]ts [facility] a [facility] Physical Exam Vital Signs Vital Signs Date Time Temp Pulse Resp B/P (MAP) Pulse Ox O2 Delivery O2 Flow Rate FiO2 05/18/17 07:24 98.8 93 18 154/64 (94) 96 Nasal Cannula 2.00 05/18/17 05:15 88 20 133/60 (84) 98 Room Air 05/18/17 04:30 92 20 147/67 (93) 96 Room Air 05/18/17 04:15 90 21 149/63 (91) 96 Room Air 05/18/17 03:51 98.3 90 20 152/64 (93) 95 Room Air 05/18/17 03:46 98.0 98 20 152/64 (93) 98 Physical Exam GENERAL: This is a well-nourished, well-developed patient, appears younger than stated age. HEENT: Atraumatic. Normocephalic. No temporal or scalp tenderness. No scleral icterus. Airway patent. NECK: Trachea midline, supple, nontender. CARDIO: Regular. RESP: CTA bilaterally. No wheezes, rales, or rhonchi. ABD: +BS, soft, non-tender, nondistended. EXT: Extremities without clubbing, cyanosis, or edema. NEURO: Awake and alert. Very poor historian. Motor and sensory grossly within normal limits. Normal speech. Laboratory Laboratory Tests Test 05/18/17 04:10 05/18/17 05:09 White Blood Count 9.8 Red Blood Count 3.55 Hemoglobin 10.6 Hematocrit 31.5 Mean Corpuscular Volume 88.7 Mean Corpuscular Hemoglobin 29.8 Mean Corpuscular Hemoglobin Concent 33.6 Red Cell Distribution Width 13.5 Platelet Count 225 Mean Platelet Volume 8.0 Neutrophils (%) (Auto) 87.0 Lymphocytes (%) (Auto) 6.2 Monocytes (%) (Auto) 5.8 Eosinophils (%) (Auto) 0.8 Basophils (%) (Auto) 0.2 Neutrophils # (Auto) 8.5 Lymphocytes # (Auto) 0.6 Monocytes # (Auto) 0.6 Eosinophils # (Auto) 0.1 Basophils # (Auto) 0.0 CBC Comment DIFF FINAL Differential Comment Stool C. difficile Toxin (PCR) NEGATIVE Stl C. difficile Toxin Epiderm 027 PRESUMPTIVE NEGATIVE Blood Urea Nitrogen 20 Creatinine 0.79 Random Glucose 92 Total Protein 6.5 Albumin 3.3 Calcium Level 7.8 Magnesium Level 1.7 Alkaline Phosphatase 93 Aspartate Amino Transf (AST/SGOT) 27 Alanine Aminotransferase (ALT/SGPT) 21 Total Bilirubin 0.4 Sodium Level 140 Potassium Level 3.0 Chloride Level 108 Carbon Dioxide Level 21.4 Anion Gap 11 Estimat Glomerular Filtration Rate 69 Lipase 267 Urine Color LIGHT-YELLOW Urine Turbidity CLEAR Urine pH 5.5 Urine Specific [place] 1.012 Urine Protein TRACE Urine Glucose (UA) NEG Urine Ketones NEG Urine Occult Blood TRACE Urine Nitrite NEG Urine Bilirubin NEG Urine Urobilinogen LESS THAN 2.0 Urine Leukocyte Esterase MOD Urine RBC 3 Urine WBC 2 Urine Squamous Epithelial Cells 1 Urine Bacteria OCC Urine Mucus FEW Microscopic Urinalysis Comment CULT NOT INDICATED Date/Time Source Procedure Growth Status 05/18/17 04:10 Stool Stool Pending Received Result Diagram: 05/18/1740905/18/17409 Caprini VTE Risk Assessment Caprini VTE Risk Assessment: Mod/High Risk (score >= 2) Caprini Risk Assessment Model Point Value = 1 Point Value = 2 Point Value = 3 Point Value = 5 Age 41-60 Minor surgery BMI > 25 kg/m2 Swollen legs Varicose veins or History of unexplained or recurrent spontaneous Oral contraceptives or hormone replacement Sepsis (< 1 month) Serious lung disease, including pneumonia (< 1 month) Abnormal pulmonary function Acute myocardial infarction Congestive heart failure (< 1 month) History of inflammatory bowel disease Medical patient at bed rest Age 61-74 Arthroscopic surgery Major open surgery (> 45 min) Laparoscopic surgery (> 45 min) Malignancy Confined to bed (> 72 hours) Immobilizing plaster cast Central venous access Age >= 75 History of VTE Family history of VTE Factor V Leiden Prothrombin [id number] Lupus anticoagulant Anticardiolipin antibodies Elevated serum homocysteine Heparin-induced thrombocytopenia Other congenital or acquired thrombophilia Stroke (< 1 month) Elective arthroplasty Hip, pelvis, or leg fracture Acute spinal cord injury (< 1 month) Prophylaxis Regimen Total Risk Factor Score Risk Level Prophylaxis Regimen 0-1 Low Early ambulation 2 Moderate Order ONE of the following: *Sequential Compression Device (SCD) *Heparin 5000 units SQ BID 3-4 Higher Order ONE of the following medications: *Heparin 5000 units SQ TID *Enoxaparin/Lovenox 40 mg SQ daily (WT < 150 kg, CrCl > 30 mL/min) *Enoxaparin/Lovenox 30 mg SQ daily (WT < 150 kg, CrCl > 10-29 mL/min) *Enoxaparin/Lovenox 30 mg SQ BID (WT < 150 kg, CrCl > 30 mL/min) AND/OR *Sequential Compression Device (SCD) 5 or more Highest Order ONE of the following medications: *Heparin 5000 units SQ TID (Preferred with Epidurals) *Enoxaparin/Lovenox 40 mg SQ daily (WT < 150 kg, CrCl > 30 mL/min) *Enoxaparin/Lovenox 30 mg SQ daily (WT < 150 kg, CrCl > 10-29 mL/min) *Enoxaparin/Lovenox 30 mg SQ BID (WT < 150 kg, CrCl > 30 mL/min) AND *Sequential Compression Device (SCD) Assessment and Plan Problem List: (1) Vomiting and diarrhea ICD Codes: R11.10 - Vomiting, unspecified; R19.7 - Diarrhea, unspecified Status: Acute Plan: - Pt is an 87 y/o WF with HTN, Hyperlipidemia, Hx of CVA/TIA (2016), CAD, AAA, Hx of aortic valve stenosis s/p AVR with bioprosthetic valve, and memory deficits. - She was brought to the ED at [facility] on 05/17/17 with acute onset of N/V and diarrhea that began suddenly around 0300 that morning. She was treated with IVF and Zofran in the ED in [place] with symptomatic improvement. She was diagnosed with viral gastroenteritis and [facility]. Pt continued to have diarrhea, N/V which was persistent and the pt was becoming increasingly weak so pt was brought back to the ER at [facility] on early this morning. - Pt again was given Zofran and IVF with improvement in her N/V. - She did have some diarrhea in the ER and stool was checked for C. diff which was negative. - This is likely a gastroenteritis but if her diarrhea persists then will check other stool studies to rule out any other infectious diarrhea. - Cont. IVF - Electrolyte replacement as needed - Zofran PRN - Full liquid diet and advance as tolerated - The case was discussed with the pts daughter, Lianna, and she is in agreement with the plan to continue observation today and provide supportive care (2) Generalized weakness ICD Codes: R53.1 - Weakness; R19.7 - Diarrhea, unspecified Status: Acute Plan: - See above (3) Hypokalemia ICD Codes: E87.6 - Hypokalemia; R19.7 - Diarrhea, unspecified Status: Acute Plan: - See above - Recheck labs in AM (4) HTN (hypertension) ICD Codes: I10 - Essential (primary) hypertension Status: Chronic Plan: - Home meds resumed (5) GERD (gastroesophageal reflux disease) ICD Codes: K21.9 - Gastro-esophageal reflux disease without esophagitis Status: Chronic Plan: - PPI (6) Hyperlipidemia ICD Codes: E78.5 - Hyperlipidemia, unspecified Status: Chronic (7) Transient neurologic deficit ICD Codes: R29.818 - Other symptoms and signs involving the nervous system Status: Acute Plan: - Pts Plavix was resumed Assessment and Plan Patient examined. Assessment and plan formulated with Coco Starr PA-C. I agree with the above. probably viral gastroenteritis and dehydration/weakness ivf. kcl. PT. likely needs snf tomorrow. Coco Starr May 18, 2017 08:37 Paul Beltran MD May 18, 2017 14:05
[2017-05-18] MEDS: NS + KCL 20 MEQ INJ 1,000 ML IV SCH (13:00)
[2017-05-18] MEDS ORDERED: LOPERAMIDE HCL 2 MG CAP PO PRN (16:00)
[2017-05-18] MEDS ORDERED: LOPERAMIDE HCL 2 MG CAP PO ONE (16:00)
[2017-05-19] VITALS (12 sets, daily range): BP systolic 139–208; BP diastolic 60–115; PULSE 61–203; RESP 18–32; TEMP 96.1–98.4; O2SAT 77–99
[2017-05-19] MEDS: NS + KCL 20 MEQ INJ 1,000 ML IV SCH (02:04)
[2017-05-19 06:01] LABS: AUTOMATED NEUTROPHIL # 3.2 TH/MM3 (1.8-7.7); BASOPHIL % 0.4 % (0.0-2.0); EOSINOPHIL # 0.4 TH/MM3 (0-0.4); EOSINOPHIL % 5.2 % (0.0-4.0); HEMATOCRIT 29.9 % (35.0-46.0); HEMOGLOBIN 10.2 GM/DL (11.6-15.3); LYMPH % 35.2 % (9.0-44.0); LYMPHOCYTE # 2.4 TH/MM3 (1.0-4.8); MEAN CELL VOLUME 87.9 FL (80.0-100.0); MEAN CORPUSCULAR HGB CONC 34.1 % (32.0-36.0); MEAN PLATELET VOLUME 8.4 FL (7.0-11.0); MONO % 12.3 % (0.0-8.0); MONOCYTE # 0.8 TH/MM3 (0-0.9); NEUT % 46.9 % (16.0-70.0); PLATELET COUNT 186 TH/MM3 (150-450); RED CELL DISTRIBUTION WIDTH 13.7 % (11.6-17.2); WHITE BLOOD COUNT 6.9 TH/MM3 (4.0-11.0)
[2017-05-19 06:22] LABS: BICARBONATE 21.8 MEQ/L (21.0-32.0); CALCIUM 7.9 MG/DL (8.5-10.1); CREATININE 0.67 MG/DL (0.50-1.00); MAGNESIUM 1.9 MG/DL (1.5-2.5)
[2017-05-19] MEDS ORDERED: LOPE-1 PO (07:48)
--- NOTE | 2017-05-19 07:49 | HHI.DCPOC ---
Discharge Care Plan Diagnosis: (1) Norovirus (2) Vomiting and diarrhea (3) Generalized weakness (4) GERD (gastroesophageal reflux disease) (5) HTN (hypertension) (6) Hyperlipidemia Goals to Promote Your Health * To prevent worsening of your condition and complications * To maintain your health at the optimal level Directions to Meet Your Goals Take your medications as prescribed Follow your dietary instruction Follow activity as directed Keep your appointments as scheduled Take your immunizations and boosters as scheduled If your symptoms worsen call your PCP, if no PCP go to Urgent Care Center or Emergency Room Smoking is Dangerous to Your Health. Avoid second hand smoke Call the 24-hour hour crisis hotline for domestic abuse at Coco Starr May 19, 2017 07:49
[2017-05-19] MEDS: CLOPIDOGREL 75 MG TAB PO SCH (08:00)
[2017-05-19] MEDS: METOPROLOL SUCCINATE 25 MG EXTENDED RELEASE TAB PO SCH (08:00)
--- NOTE | 2017-05-19 10:50 | HHI.PR ---
Subjective Remarks Pt has not had any further diarrhea or vomiting She wants to try eating regular food Pts daughter is present at the time of examination and reports that the pt has been coughing more today Pt reportedly walked this morning and feels that she is at her baseline as far as strength and ambulation. Pt and daughter do not want to go to rehab, want to go back to [facility] and continue PT there Objective Vitals Vital Signs Date Time Temp Pulse Resp B/P (MAP) Pulse Ox O2 Delivery O2 Flow Rate FiO2 05/19/17 08:18 98.2 61 18 145/68 (93) 90 05/19/17 03:18 97.1 76 18 139/64 (89) 93 05/19/17 00:34 98.2 77 18 153/60 (91) 94 05/19/17 00:00 75 05/18/17 19:33 98.0 77 17 139/68 (91) 96 05/18/17 17:09 97.0 85 18 159/69 (99) 95 05/18/17 15:36 113 18 159/78 (105) 98 Room Air 05/18/17 13:57 75 18 142/65 (90) 96 Room Air 05/18/17 11:30 70 18 139/78 (98) 97 Room Air Result Diagram: 05/19/17 0500 05/19/17 0500 Other Results Laboratory Tests Test 05/18/17 04:10 05/18/17 05:09 05/19/17 05:00 White Blood Count 9.8 TH/MM3 6.9 TH/MM3 Red Blood Count 3.55 MIL/MM3 3.40 MIL/MM3 Hemoglobin 10.6 GM/DL 10.2 GM/DL Hematocrit 31.5 % 29.9 % Mean Corpuscular Volume 88.7 FL 87.9 FL Mean Corpuscular Hemoglobin 29.8 PG 30.0 PG Mean Corpuscular Hemoglobin Concent 33.6 % 34.1 % Red Cell Distribution Width 13.5 % 13.7 % Platelet Count 225 TH/MM3 186 TH/MM3 Mean Platelet Volume 8.0 FL 8.4 FL Neutrophils (%) (Auto) 87.0 % 46.9 % Lymphocytes (%) (Auto) 6.2 % 35.2 % Monocytes (%) (Auto) 5.8 % 12.3 % Eosinophils (%) (Auto) 0.8 % 5.2 % Basophils (%) (Auto) 0.2 % 0.4 % Neutrophils # (Auto) 8.5 TH/MM3 3.2 TH/MM3 Lymphocytes # (Auto) 0.6 TH/MM3 2.4 TH/MM3 Monocytes # (Auto) 0.6 TH/MM3 0.8 TH/MM3 Eosinophils # (Auto) 0.1 TH/MM3 0.4 TH/MM3 Basophils # (Auto) 0.0 TH/MM3 0.0 TH/MM3 CBC Comment DIFF FINAL DIFF FINAL Differential Comment Stool C. difficile Toxin (PCR) NEGATIVE Stl C. difficile Toxin Epiderm 027 PRESUMPTIVE NEGATIVE Blood Urea Nitrogen 20 MG/DL 15 MG/DL Creatinine 0.79 MG/DL 0.67 MG/DL Random Glucose 92 MG/DL 86 MG/DL Total Protein 6.5 GM/DL Albumin 3.3 GM/DL Calcium Level 7.8 MG/DL 7.9 MG/DL Magnesium Level 1.7 MG/DL 1.9 MG/DL Alkaline Phosphatase 93 U/L Aspartate Amino Transf (AST/SGOT) 27 U/L Alanine Aminotransferase (ALT/SGPT) 21 U/L Total Bilirubin 0.4 MG/DL Sodium Level 140 MEQ/L 141 MEQ/L Potassium Level 3.0 MEQ/L 3.6 MEQ/L Chloride Level 108 MEQ/L 111 MEQ/L Carbon Dioxide Level 21.4 MEQ/L 21.8 MEQ/L Anion Gap 11 MEQ/L 8 MEQ/L Estimat Glomerular Filtration Rate 69 ML/MIN 83 ML/MIN Lipase 267 U/L Urine Color LIGHT-YELLOW Urine Turbidity CLEAR Urine pH 5.5 Urine Specific [place] 1.012 Urine Protein TRACE mg/dL Urine Glucose (UA) NEG mg/dL Urine Ketones NEG mg/dL Urine Occult Blood TRACE Urine Nitrite NEG Urine Bilirubin NEG Urine Urobilinogen LESS THAN 2.0 MG/DL Urine Leukocyte Esterase MOD Urine RBC 3 /hpf Urine WBC 2 /hpf Urine Squamous Epithelial Cells 1 /hpf Urine Bacteria OCC /hpf Urine Mucus FEW /lpf Microscopic Urinalysis Comment CULT NOT INDICATED Objective Remarks General: NAD, Awake and alert Chest: Few crackles at the bases Cardiac: Regular Abd: +BS, soft ND/NT Ext: No edema A/P Problem List: (1) Norovirus ICD Codes: A08.11 - Acute gastroenteropathy due to [place] agent Status: Acute Plan: - Pt is an 87 y/o WF with HTN, Hyperlipidemia, Hx of CVA/TIA (2017), CAD, AAA, Hx of aortic valve stenosis s/p AVR with bioprosthetic valve, and memory deficits. - She was brought to the ED at [facility] on 05/17/17 with acute onset of N/V and diarrhea that began suddenly around 0300 that morning. She was treated with IVF and Zofran in the ED in [place] with symptomatic improvement. She was diagnosed with viral gastroenteritis and [facility]. Pt continued to have diarrhea, N/V which was persistent and the pt was becoming increasingly weak so pt was brought back to the ER at [facility] on early this morning. - Pt again was given Zofran and IVF with improvement in her N/V. - She did have some diarrhea in the ER and stool was checked for C. diff which was negative. - Stool studies were positive for Norovirus - Pt was placed on isolation precautions - Imodium PRN - Pt is improving symptomatically and wants diet advanced. - Zofran PRN - Pts daughter concerned about a cough today. Likely related to some atelectasis as pt has not been out of bed much. Obtain CXR today. Encouraged pt to be OOB to chair and perform deep breathing exercises every hour while awake. (2) Vomiting and diarrhea ICD Codes: R11.10 - Vomiting, unspecified; R19.7 - Diarrhea, unspecified Status: Acute Plan: - See above (3) Generalized weakness ICD Codes: R53.1 - Weakness; R19.7 - Diarrhea, unspecified Status: Acute Plan: - See above (4) Hypokalemia ICD Codes: E87.6 - Hypokalemia; R19.7 - Diarrhea, unspecified Status: Acute Plan: - See above - Improved with replacement (5) HTN (hypertension) ICD Codes: I10 - Essential (primary) hypertension Status: Chronic Plan: - Home meds resumed (6) GERD (gastroesophageal reflux disease) ICD Codes: K21.9 - Gastro-esophageal reflux disease without esophagitis Status: Chronic Plan: - PPI (7) Hyperlipidemia ICD Codes: E78.5 - Hyperlipidemia, unspecified Status: Chronic (8) Transient neurologic deficit ICD Codes: R29.818 - Other symptoms and signs involving the nervous system Status: Acute Plan: - Pts Plavix was resumed Assessment and Plan Patient examined. Assessment and plan formulated with Coco Starr PA-C. I agree with the above. norovirus diarrhea better given ivf for diarrhea. now more sob and family concerned. cxr looks like mild pulmonary edema. will give lasix/kcl...nebs. reevaluate. some dementia on exam. daughter refusing snf despite pt weakness. Coco Starr May 19, 2017 10:50 Paul Beltran MD May 19, 2017 16:30
--- NOTE | 2017-05-19 14:49 | RADRPT ---
EXAM DATE/TIME: 05/19/2017 14:32 [facility] COMPARISON: No previous studies available for comparison. INDICATIONS : Cough, shortness of breath MEDICAL HISTORY : Cardiovascular disease. Hypertension SURGICAL HISTORY : CABG. Appendectomy.Hysterectomy ENCOUNTER: Initial ACUITY: 1 day PAIN SCORE: 0/10 LOCATION: Bilateral chest FINDINGS: Single AP view of the chest. Median sternotomy wires are present. Prosthetic cardiac valve. Mild lowe r lung zone pulmonary vasculature indistinctness. Lungs are otherwise clear. Cardiomediastinal silhou ette within normal limits. No evidence of pleural effusion or pneumothorax. CONCLUSION: Mild pulmonary vascular congestion. No other acute cardiopulmonary disease identified. Terrence Ivy MD on May 19, 2017 at 14:47 Board Certified Radiologist. This report was verified electronically.
[2017-05-19] MEDS ORDERED: RESP: ALBUTEROL 2.5 MG/IPRATROPIUM 0.5 MG NEB (PRN) NEB (15:30)
[2017-05-19] MEDS ORDERED: FUROSEMIDE 20 MG TAB PO ONE (15:30)
[2017-05-19] MEDS ORDERED: RESP: ALBUTEROL 2.5 MG/IPRATROPIUM 0.5 MG NEB (SCH) NEB ONE (15:30)
[2017-05-19] MEDS ORDERED: POTASSIUM CHLORIDE 20 MEQ CONTROLLED RELEASE TAB PO ONE (15:45)
[2017-05-19] MEDS ORDERED: FUROSEMIDE 40 MG/4 ML VIAL ONE (23:43)
[2017-05-19] MEDS ORDERED: FUROSEMIDE 40 MG/4 ML VIAL IV PUSH ONE (23:45)
--- NOTE | 2017-05-19 23:51 | RADRPT ---
EXAM DATE/TIME: 05/19/2017 23:41 [facility] COMPARISON: CHEST SINGLE AP, May 19, 2017, 14:32. INDICATIONS : Short of breath. MEDICAL HISTORY : Cardiovascular disease. Hypertension SURGICAL HISTORY : CABG. ENCOUNTER: Initial ACUITY: 1 day PAIN SCORE: 0/10 LOCATION: Bilateral chest FINDINGS: Moderate severity bibasilar consolidation with small to moderate pleural effusions are present. No pn eumothorax. Heart size stable toward the normal limits. Patient has had previous median sternotomy. CONCLUSION: Bibasilar consolidation and small to moderate pleural effusions. Speedy Damon MD on May 19, 2017 at 23:48 Board Certified Radiologist. This report was verified electronically.
[2017-05-20] VITALS (7 sets, daily range): BP systolic 123–161; BP diastolic 62–79; PULSE 83–101; RESP 14–20; TEMP 97.7–98.5; O2SAT 92–96
--- NOTE | 2017-05-20 06:44 | RADRPT ---
EXAM DATE/TIME: 05/20/2017 06:28 [facility] COMPARISON: CHEST SINGLE AP, May 19, 2017, 23:41. INDICATIONS : Short of breath. MEDICAL HISTORY : None. SURGICAL HISTORY : None. ENCOUNTER: Subsequent ACUITY: 1 day PAIN SCORE: 0/10 LOCATION: Bilateral chest FINDINGS: Patchy parenchymal consolidation of both bases again noted and not significantly changed. Small, bila teral pleural effusions are likely. No pneumothorax demonstrated. Heart size stable, within normal limits. Patient has had previous median sternotomy and CABG. CONCLUSION: No significant change patchy consolidation and small effusions of both bases. Speedy Damon MD on May 20, 2017 at 6:42 Board Certified Radiologist. This report was verified electronically.
[2017-05-20 07:04] LABS: BICARBONATE 23.3 MEQ/L (21.0-32.0); CALCIUM 8.4 MG/DL (8.5-10.1); CREATININE 0.78 MG/DL (0.50-1.00); MAGNESIUM 1.6 MG/DL (1.5-2.5)
[2017-05-20] MEDS: CLOPIDOGREL 75 MG TAB PO SCH (09:01)
[2017-05-20] MEDS: METOPROLOL SUCCINATE 25 MG EXTENDED RELEASE TAB PO SCH (09:01)
--- NOTE | 2017-05-20 10:08 | EKG ---
Date Performed: 05/19/2017 Time Performed: 23:30:37 PTAGE: 87 years EKG: Baseline artifact present ATRIAL FLUTTER/TACHYCARDIA WITH RAPID VENTRICULAR RESPONSE NONSPE CIFIC ST & T-WAVE ABNORMALITY ABNORMAL RHYTHM ECG Compared to prior electrocardiogram, unfortunately both EKGs have marked artifact but as best I can tell atrial flutter has replaced Sinus rhythm . DOCTOR: Eduardo Arriola Interpretating Date/Time 05/20/2017 10:06:26
--- NOTE | 2017-05-20 10:08 | EKG ---
Date Performed: 05/19/2017 Time Performed: 23:26:59 PTAGE: 87 years EKG: Sinus tachycardia NONSPECIFIC ST & T-WAVE ABNORMALITY ABNORMAL RHYTHM ECG Compared to prior electrocardiogram, rate has increased and Marked ST depressions are now present. Clinical correla tion suggested. Additionally, there is ST elevation in AVR and ST-elevation [place] needs to be ruled out . DOCTOR: Eduardo Arriola Interpretating Date/Time 05/20/2017 10:07:38
[2017-05-20] MEDS ORDERED: POTASSIUM CHLORIDE 20 MEQ CONTROLLED RELEASE TAB PO ONE ×2 (10:15→15:00)
--- NOTE | 2017-05-20 10:34 | HHI.PR ---
Subjective Remarks Pt had some increased SOB last night and was given IV Lasix x one dose There was no reported chest pain or palpitations Her HR was elevated last night but has been stable this morning and ?A. flutter on an EKG taken last night She complains of her legs still hurting this morning. She was not using supplemental O2 this morning when i examined her. I helped move patient out of bed to the chair with her daughter and checked her O2 sats, initially her O2 sats were in the low 80's but with some slow deep breaths her O2 sats increased to the mid 90's on room air She appears dry, her lips are very dry and her daughter reports that the pt has not been eating or drinking much Encouraged oral intake Objective Vitals Vital Signs Date Time Temp Pulse Resp B/P (MAP) Pulse Ox O2 Delivery O2 Flow Rate FiO2 05/20/17 10:15 98.0 101 20 152/71 (98) 92 05/20/17 04:56 97.7 93 20 151/79 (103) 96 05/19/17 23:55 143 22 143/93 (110) 99 05/19/17 23:30 137 32 208/110 (142) 78 05/19/17 23:30 99 15.00 05/19/17 23:15 96.1 138 32 203/115 (144) 77 05/19/17 23:05 96.9 121 18 171/97 (121) 05/19/17 20:09 96.8 91 20 156/70 (98) 95 05/19/17 16:15 80 05/19/17 15:15 98.0 75 18 165/78 (107) 96 05/19/17 12:03 98.4 83 22 139/64 (89) 97 Result Diagram: 05/19/17 0500 05/20/17 0617 Other Results Laboratory Tests Test 05/19/17 05:00 05/19/17 23:45 05/20/17 06:17 White Blood Count 6.9 TH/MM3 Red Blood Count 3.40 MIL/MM3 Hemoglobin 10.2 GM/DL Hematocrit 29.9 % Mean Corpuscular Volume 87.9 FL Mean Corpuscular Hemoglobin 30.0 PG Mean Corpuscular Hemoglobin Concent 34.1 % Red Cell Distribution Width 13.7 % Platelet Count 186 TH/MM3 Mean Platelet Volume 8.4 FL Neutrophils (%) (Auto) 46.9 % Lymphocytes (%) (Auto) 35.2 % Monocytes (%) (Auto) 12.3 % Eosinophils (%) (Auto) 5.2 % Basophils (%) (Auto) 0.4 % Neutrophils # (Auto) 3.2 TH/MM3 Lymphocytes # (Auto) 2.4 TH/MM3 Monocytes # (Auto) 0.8 TH/MM3 Eosinophils # (Auto) 0.4 TH/MM3 Basophils # (Auto) 0.0 TH/MM3 CBC Comment DIFF FINAL Differential Comment Blood Urea Nitrogen 15 MG/DL 12 MG/DL Creatinine 0.67 MG/DL 0.78 MG/DL Random Glucose 86 MG/DL 113 MG/DL Calcium Level 7.9 MG/DL 8.4 MG/DL Magnesium Level 1.9 MG/DL 1.6 MG/DL Sodium Level 141 MEQ/L 138 MEQ/L Potassium Level 3.6 MEQ/L 3.1 MEQ/L Chloride Level 111 MEQ/L 104 MEQ/L Carbon Dioxide Level 21.8 MEQ/L 23.3 MEQ/L Anion Gap 8 MEQ/L 11 MEQ/L Estimat Glomerular Filtration Rate 83 ML/MIN 70 ML/MIN Blood Gas Puncture Site RT RADIAL Blood Gas Patient Temperature 98.6 Blood Gas HCO3 20 mmol/L Blood Gas Base Excess -3.5 mmol/L Blood Gas Oxygen Saturation 98 % Arterial Blood pH 7.44 Arterial Blood Partial Pressure CO2 30 mmHg Arterial Blood Partial Pressure O2 210 mmHG Arterial Blood Oxygen Content 16.2 Vol % Arterial Blood Carboxyhemoglobin 1.1 % Arterial Blood Methemoglobin 0.6 % Blood Gas Hemoglobin 11.4 G/DL Oxygen Delivery Device NRB Blood Gas Liter Flow 15 L/M Imaging Last Impressions Chest X-Ray 05/20/17 0600 Signed Impressions: Service Date/Time: Saturday, May 20, 2017 06:28 - CONCLUSION: No significant change patchy consolidation and small effusions of both bases. Speedy Damon MD Objective Remarks General: NAD, Awake and alert Chest: Crackles at the bases bilaterally Cardiac: Regular Abd: +BS, soft ND/NT Ext: No edema A/P Problem List: (1) Norovirus ICD Codes: A08.11 - Acute gastroenteropathy due to [place] agent Status: Acute Plan: - Pt is an 87 y/o WF with HTN, Hyperlipidemia, Hx of CVA/TIA (2017), CAD, AAA, Hx of aortic valve stenosis s/p AVR with bioprosthetic valve, and memory deficits. - She was brought [place] [facility] with acute onset of N/V and diarrhea that began suddenly around 0300 that morning. She was treated with IVF and Zofran in the ED in [place] with symptomatic improvement. She was diagnosed with viral gastroenteritis and sent back to her [facility]. Pt continued to have diarrhea, N/V which was persistent and the pt was becoming increasingly weak so pt was brought back to the ER at [facility] on early this morning. - Pt again was given Zofran and IVF with improvement in her N/V. - She did have some diarrhea in the ER and stool was checked for C. diff which was negative. - Stool studies were positive for Norovirus - Pt was placed on isolation precautions - Imodium PRN - Pt is on heart healthy diet. - No further diarrhea or vomiting but poor appetite and poor PO intake. - Zofran PRN (2) Cough ICD Codes: R05 - Cough Status: Acute Plan: - On 05/19 pt complained of a new onset of cough and had some hypoxia requiring supplemental O2 - CXR with evidence of some volume overload/pulmonary edema - Pt was given a dose of Lasix 20mg po daily and KCL - Last night pt reportedly had increased SOB/hypoxia and the overnight covering physician was called and pt was given a dose of IV Lasix 40mg - CXR (05/20) --> No significant change patchy consolidation and small effusions of both bases. - Pt appears very dry and has not been eating/drinking much per the pts daughter - Encouraged oral intake - Encouraged OOB to chair and deep breathing. - Pt currently not on supplemental O2 but with moving around this morning she did have some hypoxia. - Monitor today. She may require another dose of IV Lasix if she again required supplemental O2 - Replace potassium (3) Generalized weakness ICD Codes: R53.1 - Weakness; R19.7 - Diarrhea, unspecified Status: Acute Plan: - See above (4) Vomiting and diarrhea ICD Codes: R11.10 - Vomiting, unspecified; R19.7 - Diarrhea, unspecified Status: Acute Plan: - See above (5) Hypokalemia ICD Codes: E87.6 - Hypokalemia; R19.7 - Diarrhea, unspecified Status: Acute Plan: - See above - Improved with replacement (6) HTN (hypertension) ICD Codes: I10 - Essential (primary) hypertension Status: Chronic Plan: - Home meds resumed (7) GERD (gastroesophageal reflux disease) ICD Codes: K21.9 - Gastro-esophageal reflux disease without esophagitis Status: Chronic Plan: - PPI (8) Hyperlipidemia ICD Codes: E78.5 - Hyperlipidemia, unspecified Status: Chronic (9) Transient neurologic deficit ICD Codes: R29.818 - Other symptoms and signs involving the nervous system Status: Acute Plan: - Pts Plavix was resumed Assessment and Plan Patient examined. Assessment and plan formulated with Coco Starr PA-C. I agree with the above. norovirus diarrhea better generally weak hypoxia related to pulm edema after ivf. cont diuretic. wean oxygen. reevaluate in AM with PT....if still needs snf then pt/family will agree Coco Starr May 20, 2017 10:34 Paul Beltran MD May 20, 2017 14:45
[2017-05-20] MEDS: ONDANSETRON HCL 4 MG/2 ML VIAL IV PUSH PRN (10:45)
[2017-05-20] MEDS ORDERED: RESP: ALBUTEROL 2.5 MG/IPRATROPIUM 0.5 MG NEB (PRN) NEB (14:45)
[2017-05-20] MEDS ORDERED: FUROSEMIDE 20 MG TAB PO ONE (15:00)
[2017-05-20] MEDS: POTASSIUM CHLORIDE 20 MEQ CONTROLLED RELEASE TAB PO SCH (20:30)
[2017-05-21] VITALS (14 sets, daily range): BP systolic 106–156; BP diastolic 52–93; PULSE 70–143; RESP 14–36; TEMP 97–99.1; O2SAT 86–100
[2017-05-21] MEDS ORDERED: DILTIAZEM HCL 25 MG/5 ML VIAL IV ONE (02:45)
[2017-05-21] MEDS ORDERED: DILTIAZEM 125 MG/NS 100 ML IV PRN ×2 (02:45)
[2017-05-21 06:11] LABS: BICARBONATE 23.4 MEQ/L (21.0-32.0); CALCIUM 8.1 MG/DL (8.5-10.1); CREATININE 0.67 MG/DL (0.50-1.00)
[2017-05-21] MEDS: POTASSIUM CHLORIDE 20 MEQ CONTROLLED RELEASE TAB PO SCH ×2 (08:57→20:56)
[2017-05-21] MEDS: METOPROLOL SUCCINATE 25 MG EXTENDED RELEASE TAB PO SCH (09:15)
[2017-05-21] MEDS: CLOPIDOGREL 75 MG TAB PO SCH (09:15)
--- NOTE | 2017-05-21 09:16 | PD.CONS ---
HPI Service cardiology Consult Requested By Reason for Consult afib RVR, elevated troponin Primary Care Physician Unknown History of Present Illness This is a pleasant 87 yo WF with CAD, CABG, HTN, HLD, bioprosthetic AVR, AAA, CVA/TIA (2016) who presents with gastroenteritis with N/V/D and progressive weakness x 1 week. She developed aflutter over the weekend with heart rate as high as 140bpm, this rhythm appears to be new onset. Cardizem gtt started along with metoprolol and currently in NSR. Patient denies chest pain, SOB or palpitations but does admit to progressive weakness over the past several weeks with poor po intake. Nausea and diarrhea have resolved. CXR shows small bilateral pleural effusions, troponins elevated today 6.5. (An Nguyen) Review of Systems Consitutional: DENIES: Chills, Weight gain Respiratory: DENIES: Cough, Snoring, Shortness of breath, Wheezing, Sputum production Cardiovascular: DENIES: Chest pain, Palpitations, Syncope Gastrointestinal: DENIES: Vomiting, Change in bowel habits, Reflux, Bloody stools, Melena (An Nguyen) Past Family Social History Allergies: Coded Allergies: iodine (Verified Allergy, Severe, TONGUE SWELLS, HIVES, 05/18/17) potassium iodide (Verified Allergy, Severe, TONGUE SWELLS, HIVES, 05/18/17) povidone-iodine (Verified Allergy, Severe, TONGUE SWELLS, HIVES, 05/18/17) shrimp (Verified Allergy, Severe, SWELLING OF TROAT AND TONGUE, 05/18/17) sodium iodide (Verified Allergy, Severe, TONGUE SWELLS, HIVES, 05/18/17) iohexol (Verified Allergy, Mild, 05/18/17) acetaminophen (Verified Allergy, Unknown, 05/18/17) oxycodone (Verified Allergy, Unknown, 05/18/17) Past Medical History HTN Hyperlipidemia Hx of CVA/TIA (2017) CAD AAA Aortic valve stenosis s/p AVR with bioprosthetic valve Memory deficits Chronic low back pain Osteoarthritis Osteoporosis Hx of BCC on face PACs/PVCs 2D echo (06/2016): - Estimated EF 45% - Grade 1 diastolic dysfunction - Prosthetic tissue aortic valve with mild possible paravalvular leak - Mild mitral regurgitation, mild tricuspid regurgitation with PA systolic pressure around 32mmHg Past Surgical History AVR in 1999 CABG x 4 in 2006 Appendectomy KRISTINE Left total hip replacement FRANCISCO with BSO Bladder sling placement for stress incontinence Varicose vein ligation Reported Medications Reported Meds & Active Scripts Active Zofran (Ondansetron HCl) 4 Mg Tab 4 Mg PO Q6HR PRN Plavix (Clopidogrel Bisulfate) 75 Mg Tab 75 Mg PO DAILY Walker with Front Wheels (Device) 1 Mis Mis 1 Ea .ROUTE DIRECTED Reported Metoprolol Succinate ER 24 HR (Metoprolol Succinate) 25 Mg Tab 25 Mg PO DAILY Active Ordered Medications Current Medications Medications (Trade) Dose Ordered Sig/Eddy Route Start Time Stop Time Status Last Admin (NS Flush) 2 ml UNSCH PRN IVF 05/18/17 04:00 05/18/17 05:23 (Plavix) 75 mg DAILY PO 05/18/17 09:00 05/20/17 09:01 (Toprol Xl) 25 mg DAILY PO 05/18/17 09:00 05/20/17 09:01 (Zofran Inj) 4 mg Q6H PRN IV PUSH 05/18/17 07:30 05/20/17 10:45 (Imodium) 2 mg Q4H PRN PO 05/18/17 16:00 (Duoneb Neb) 1 ampule Q4HR NEB PRN NEB 05/20/17 14:45 (KCl) 20 meq Q12HR PO 05/20/17 21:00 05/20/17 20:30 Diltiazem HCl 125 mg/Sodium Chloride 125 ml @ 5 mls/hr TITRATE PRN IV 05/21/17 02:45 05/21/17 04:03 Family History ast Medical History HTN Hyperlipidemia Hx of CVA/TIA (2016) CAD AAA Aortic valve stenosis s/p AVR with bioprosthetic valve Memory deficits Chronic low back pain Osteoarthritis Osteoporosis Hx of BCC on face PACs/PVCs Noncontributory Social History ast Medical History HTN Hyperlipidemia Hx of CVA/TIA (2016) CAD AAA Aortic valve stenosis s/p AVR with bioprosthetic valve Memory deficits Chronic low back pain Osteoarthritis Osteoporosis Hx of BCC on face No reported alcohol, tobacco or illicit drug use Pts lives at a local [facility] (An Nguyen) Physical Exam Vital Signs Vital Signs Date Time Temp Pulse Resp B/P (MAP) Pulse Ox O2 Delivery O2 Flow Rate FiO2 3/12/18 08:00 98.3 79 15 106/52 (70) 96 05/21/17 08:00 79 05/21/17 07:00 94 Nasal Cannula 2.00 05/21/17 04:03 109 05/21/17 04:00 109 05/21/17 04:00 94 Nasal Cannula 3.00 05/21/17 03:17 97.1 143 24 146/93 (110) 93 05/21/17 03:06 97.0 141 36 147/84 (105) 98 05/20/17 20:01 98.5 91 14 161/78 (105) 92 05/20/17 20:00 95 Nasal Cannula 3.00 05/20/17 15:00 83 05/20/17 15:00 88 95 05/20/17 14:40 98.0 87 20 123/62 (82) 94 05/20/17 10:15 98.0 101 20 152/71 (98) 92 Physical Exam GENERAL: SKIN: Warm and dry. HEAD: Atraumatic. Normocephalic. EYES: Pupils equal and round. No scleral icterus. No injection or drainage. ENT: No nasal bleeding or discharge. Mucous membranes pink and moist. NECK: Trachea midline. No JVD. CARDIOVASCULAR: Regular rate and rhythm. systolic murmur I/ LUSB RESPIRATORY: No accessory muscle use. decreased breath sounds at bilateral bases GASTROINTESTINAL: Abdomen soft, non-tender, nondistended. Hepatic and splenic margins not palpable. MUSCULOSKELETAL: Extremities without clubbing, cyanosis, or edema. No obvious deformities. NEUROLOGICAL: Awake and alert. No obvious cranial nerve deficits. Normal speech. PSYCHIATRIC: Appropriate mood and affect; insight and judgment normal. Laboratory Laboratory Tests Test 05/21/17 03:59 Nasal Screen MRSA (PCR) MRSA NOT DETECTED Blood Urea Nitrogen 13 Creatinine 0.67 Random Glucose 93 Calcium Level 8.1 Sodium Level 134 Potassium Level 4.4 Chloride Level 102 Carbon Dioxide Level 23.4 Anion Gap 9 Estimat Glomerular Filtration Rate 83 Troponin I 6.51 Date/Time Source Procedure Growth Status 05/18/17 04:10 Stool Stool - Final Norovirus Complete (An Nguyen) Result Diagram: 05/19/17 0500 05/21/17 0359 Imaging Last 48 hours Impressions Chest X-Ray 05/20/17 0600 Signed Impressions: Service Date/Time: Saturday, May 20, 2017 06:28 - CONCLUSION: No significant change patchy consolidation and small effusions of both bases. Speedy Damon MD (An Nguyen) Assessment and Plan Problem List: (1) Elevated troponin ICD Codes: R74.8 - Abnormal levels of other serum enzymes (2) Atrial flutter with rapid ventricular response ICD Codes: I48.92 - Unspecified atrial flutter Assessment and Plan 87 yo WF with CAD, CABG, HTN, HLD, bioprosthetic AVR, AAA, CVA/TIA (2017) who presents with gastroenteritis with N/V/D and progressive weakness x 1 week. She developed aflutter over the weekend with heart rate as high as 140bpm, this rhythm appears to be new onset. aflutter RVR- has converted to NSR, rate controlled. SBP improved. weaning Cardizem gtt, cont metoprolol CHADS-VASC >3, consider anticoagulant check 2D echo elevated troponin- likely demand mediated, will repeat troponin level and monitor trend consider ischemic workup CVA/TIA- in 2017, cont plavix (An Nguyen) Assessment and Plan long discussion with family no interest in [facility] plan for med mgt not great anticoagulation candidate start isosorbide will sign off call with further questions (Joe Vogel MD) An Nguyen May 21, 2017 09:16 Joe Vogel MD May 21, 2017 17:58
--- NOTE | 2017-05-21 18:36 | EKG ---
Date Performed: 05/21/2017 Time Performed: 05:18:12 PTAGE: 87 years EKG: Atrial fibrillation with rapid ventricular response. Extensive ST-T changes may be due to m yocardial ischemia Abnormal ECG PREVIOUS TRACING 05/21/17 @ 01.28 Since the prior tracing, there has been no significant change DOCTOR: Inez Foster Interpretating Date/Time 05/21/2017 18:36:16
--- NOTE | 2017-05-21 18:53 | HHI.PR ---
Subjective Remarks Pt developed A. flutter with RVR overnight with HR into the 140s and had increased SOB and was transferred to ICU She was started on Cardizem gtt and continued on her Metoprolol and converted back to NSR Objective Vitals Vital Signs Date Time Temp Pulse Resp B/P (MAP) Pulse Ox O2 Delivery O2 Flow Rate FiO2 05/21/17 16:40 98.1 85 18 132/63 (86) 94 05/21/17 15:38 85 05/21/17 14:12 99.0 85 20 119/58 (78) 94 05/21/17 12:00 99.1 76 14 118/64 (82) 100 05/21/17 12:00 70 05/21/17 11:30 96 Nasal Cannula 2.00 05/21/17 10:00 78 05/21/17 08:00 98.3 79 15 106/52 (70) 96 05/21/17 08:00 79 05/21/17 07:00 94 Nasal Cannula 2.00 05/21/17 04:03 109 05/21/17 04:00 109 05/21/17 04:00 94 Nasal Cannula 3.00 05/21/17 03:17 97.1 143 24 146/93 (110) 93 05/21/17 03:06 97.0 141 36 147/84 (105) 98 05/20/17 20:01 98.5 91 14 161/78 (105) 92 05/20/17 20:00 95 Nasal Cannula 3.00 05/21/17 05/21/17 05/22/17 15:00 23:00 07:00 # Voids 1 Result Diagram: 05/19/17 0500 05/21/17 1133 Other Results Laboratory Tests Test 05/19/17 23:45 05/20/17 06:17 05/21/17 03:59 05/21/17 11:33 Blood Gas Puncture Site RT RADIAL Blood Gas Patient Temperature 98.6 Blood Gas HCO3 20 mmol/L Blood Gas Base Excess -3.5 mmol/L Blood Gas Oxygen Saturation 98 % Arterial Blood pH 7.44 Arterial Blood Partial Pressure CO2 30 mmHg Arterial Blood Partial Pressure O2 210 mmHG Arterial Blood Oxygen Content 16.2 Vol % Arterial Blood Carboxyhemoglobin 1.1 % Arterial Blood Methemoglobin 0.6 % Blood Gas Hemoglobin 11.4 G/DL Oxygen Delivery Device NRB Blood Gas Liter Flow 15 L/M Blood Urea Nitrogen 12 MG/DL 13 MG/DL Creatinine 0.78 MG/DL 0.67 MG/DL Random Glucose 113 MG/DL 93 MG/DL Calcium Level 8.4 MG/DL 8.1 MG/DL Magnesium Level 1.6 MG/DL Sodium Level 138 MEQ/L 134 MEQ/L Potassium Level 3.1 MEQ/L 4.4 MEQ/L 3.8 MEQ/L Chloride Level 104 MEQ/L 102 MEQ/L Carbon Dioxide Level 23.3 MEQ/L 23.4 MEQ/L Anion Gap 11 MEQ/L 9 MEQ/L Estimat Glomerular Filtration Rate 70 ML/MIN 83 ML/MIN Nasal Screen MRSA (PCR) MRSA NOT DETECTED Troponin I 6.51 NG/ML 5.35 NG/ML Imaging Last Impressions Chest X-Ray 05/20/17 0600 Signed Impressions: Service Date/Time: Saturday, May 20, 2017 06:28 - CONCLUSION: No significant change patchy consolidation and small effusions of both bases. Speedy Damon MD Objective Remarks General: NAD, Awake and alert Chest: Crackles at the bases bilaterally Cardiac: Regular Abd: +BS, soft ND/NT Ext: No edema A/P Problem List: (1) Atrial flutter with rapid ventricular response ICD Codes: I48.92 - Unspecified atrial flutter Status: Acute Plan: - Pt developed A. flutter with heart rate as high as 140s, this rhythm appears to be new onset. - Pt was started on Cardizem gtt and given Cardizem IV once - She converted back to NSR and has been weaned off the Cardizem - Cont. Metoprolol 25mg po BID - 2D echo is ordered - Cardiology was consulted and pt and family not interested in pursuing [facility] - Recommended medical management and to add Imdur, pts daughter declines addition of Imdur until she discusses this with Dr. Vasquez. - Not felt to be a great candidate for anticoagulation per Cardiology notes. - Pts daughter wants to continue on home medication regimen for now. (2) Elevated troponin ICD Codes: R74.8 - Abnormal levels of other serum enzymes Status: Acute Plan: - Pt was noted to have an elevated troponin, felt to likely be demand mediated (3) Norovirus ICD Codes: A08.11 - Acute gastroenteropathy due to [place] agent Status: Acute Plan: - Pt is an 87 y/o WF with HTN, Hyperlipidemia, Hx of CVA/TIA (2017), CAD, AAA, Hx of aortic valve stenosis s/p AVR with bioprosthetic valve, and memory deficits. - She was brought to the ED at [facility] [place] on 05/17/17 with acute onset of N/V and diarrhea that began suddenly around 0300 that morning. She was treated with IVF and Zofran in the ED in [place] with symptomatic improvement. She was diagnosed with viral gastroenteritis and sent back to her [facility]. Pt continued to have diarrhea, N/V which was persistent and the pt was becoming increasingly weak so pt was brought back to the ER at [facility] on early this morning. - Pt again was given Zofran and IVF with improvement in her N/V. - She did have some diarrhea in the ER and stool was checked for C. diff which was negative. - Stool studies were positive for Norovirus - Pt was placed on isolation precautions - Imodium PRN - Pt has improved clinically from her viral gastroenteritis - Pt is on heart healthy diet. - No further diarrhea or vomiting, appetite improving. - Zofran PRN (4) Cough ICD Codes: R05 - Cough Status: Acute Plan: - On 05/19 pt complained of a new onset of cough and had some hypoxia requiring supplemental O2 - CXR with evidence of some volume overload/pulmonary edema - Pt was given a dose of Lasix 20mg po daily and KCL - Last night pt reportedly had increased SOB/hypoxia and the overnight covering physician was called and pt was given a dose of IV Lasix 40mg - CXR (05/20) --> No significant change patchy consolidation and small effusions of both bases. - Pt appears very dry and has not been eating/drinking much per the pts daughter - Encouraged oral intake - Encouraged OOB to chair and deep breathing. - Pt currently not on supplemental O2 but with moving around this morning she did have some hypoxia. - Monitor today. She may require another dose of IV Lasix if she again required supplemental O2 - Replace potassium (5) Generalized weakness ICD Codes: R53.1 - Weakness; R19.7 - Diarrhea, unspecified Status: Acute Plan: - See above (6) Vomiting and diarrhea ICD Codes: R11.10 - Vomiting, unspecified; R19.7 - Diarrhea, unspecified Status: Acute Plan: - See above (7) Hypokalemia ICD Codes: E87.6 - Hypokalemia; R19.7 - Diarrhea, unspecified Status: Acute Plan: - See above - Improved with replacement (8) HTN (hypertension) ICD Codes: I10 - Essential (primary) hypertension Status: Chronic Plan: - Home meds resumed (9) GERD (gastroesophageal reflux disease) ICD Codes: K21.9 - Gastro-esophageal reflux disease without esophagitis Status: Chronic Plan: - PPI (10) Hyperlipidemia ICD Codes: E78.5 - Hyperlipidemia, unspecified Status: Chronic (11) Transient neurologic deficit ICD Codes: R29.818 - Other symptoms and signs involving the nervous system Status: Acute Plan: - Pts Plavix was resumed Assessment and Plan Patient examined. Assessment and plan formulated with Coco Starr PA-C. I agree with the above. Coco Starr May 21, 2017 18:53 Daniel Wheatley DO May 27, 2017 00:16
--- NOTE | 2017-05-21 20:22 | EKG ---
Date Performed: 05/21/2017 Time Performed: 01:28:57 PTAGE: 87 years EKG: ATRIAL FLUTTER/TACHYCARDIA WITH RAPID VENTRICULAR RESPONSE POSSIBLE ANTERIOR MYOCARDIAL INF ARCTION NONSPECIFIC ST-T WAVE CHANGES Since the previous tracing, no significant change noted ABNORMA L RHYTHM ECG NO PREVIOUS TRACING DOCTOR: Inez Foster Interpretating Date/Time 05/21/2017 20:20:57
[2017-05-21] MEDS: SODIUM CHLORIDE 0.9% FLUSH 10 ML FLUSH IVF PRN (20:56)
[2017-05-21] MEDS: MELATONIN 5 MG TAB PO PRN (22:13)
[2017-05-22] VITALS (8 sets, daily range): BP systolic 99–163; BP diastolic 62–87; PULSE 80–105; RESP 18–20; TEMP 97.6–99.3; O2SAT 94–99
[2017-05-22] MEDS: POTASSIUM CHLORIDE 20 MEQ CONTROLLED RELEASE TAB PO SCH ×2 (09:44→20:03)
[2017-05-22] MEDS: CLOPIDOGREL 75 MG TAB PO SCH (09:44)
[2017-05-22] MEDS: METOPROLOL SUCCINATE 25 MG EXTENDED RELEASE TAB PO SCH (09:45)
--- NOTE | 2017-05-22 15:37 | HHI.PR ---
Subjective Remarks Pts HR has been elevated periodically today with noted A. flutter RVR into the 120-140's She complains of generalized weakness Appetite is improving No diarrhea or vomiting Pt still requiring 2L of supplemental O2 Objective Vitals Vital Signs Date Time Temp Pulse Resp B/P (MAP) Pulse Ox O2 Delivery O2 Flow Rate FiO2 05/22/17 12:00 97.6 98 18 99/62 (74) 99 05/22/17 12:00 90 05/22/17 12:00 94 Nasal Cannula 2.00 05/22/17 08:00 97 Nasal Cannula 2.00 05/22/17 08:00 97 Nasal Cannula 2.00 05/22/17 08:00 80 05/22/17 08:00 98.5 89 18 156/74 (101) 97 05/22/17 04:02 94 05/22/17 04:00 98.6 90 19 140/87 (104) 95 05/22/17 00:12 88 05/22/17 00:00 99.3 92 18 155/73 (100) 94 05/21/17 20:51 93 Nasal Cannula 2.00 05/21/17 20:50 86 21 05/21/17 20:08 89 05/21/17 20:00 Nasal Cannula 2.00 05/21/17 20:00 98.1 94 18 156/75 (102) 93 05/21/17 16:40 98.1 85 18 132/63 (86) 94 05/21/17 15:38 85 Result Diagram: 05/19/17 0500 05/21/17 1133 Other Results Laboratory Tests Test 05/21/17 03:59 05/21/17 11:33 Nasal Screen MRSA (PCR) MRSA NOT DETECTED Blood Urea Nitrogen 13 MG/DL Creatinine 0.67 MG/DL Random Glucose 93 MG/DL Calcium Level 8.1 MG/DL Sodium Level 134 MEQ/L Potassium Level 4.4 MEQ/L 3.8 MEQ/L Chloride Level 102 MEQ/L Carbon Dioxide Level 23.4 MEQ/L Anion Gap 9 MEQ/L Estimat Glomerular Filtration Rate 83 ML/MIN Troponin I 6.51 NG/ML 5.35 NG/ML Imaging Last Impressions Chest X-Ray 05/20/17 0600 Signed Impressions: Service Date/Time: Saturday, May 20, 2017 06:28 - CONCLUSION: No significant change patchy consolidation and small effusions of both bases. Speedy Damon MD Objective Remarks General: NAD, Awake and alert Chest: Crackles at the bases bilaterally Cardiac: Regular Abd: +BS, soft ND/NT Ext: No edema A/P Problem List: (1) Atrial flutter with rapid ventricular response ICD Codes: I48.92 - Unspecified atrial flutter Status: Acute Plan: - Pt developed A. flutter with heart rate as high as 140s, this rhythm appears to be new onset. - Pt was started on Cardizem gtt and given Cardizem IV once - She converted back to NSR and has been weaned off the Cardizem - Cont. Metoprolol 25mg po BID - 2D echo is pending - Cardiology was consulted and pt and family not interested in pursuing [facility] - Recommended medical management and to add Imdur, pts daughter declines addition of Imdur until she discusses this with Dr. Vasquez. - Not felt to be a great candidate for anticoagulation per Cardiology notes. - Pts daughter wants to continue on home medication regimen for now. - Telemetry today with continued episodes of A. flutter with elevated rate into the 120-140's - Discussed with the pts daughter increasing the Metoprolol to 50mg BID but she does not want to adjust this right now because she feels that the pts anxiety is likely contributing to the elevated HR (2) Elevated troponin ICD Codes: R74.8 - Abnormal levels of other serum enzymes Status: Acute Plan: - Pt was noted to have an elevated troponin, felt to likely be demand mediated (3) Norovirus ICD Codes: A08.11 - Acute gastroenteropathy due to [place] agent Status: Acute Plan: - Pt is an 87 y/o WF with HTN, Hyperlipidemia, Hx of CVA/TIA (2017), CAD, AAA, Hx of aortic valve stenosis s/p AVR with bioprosthetic valve, and memory deficits. - She was brought to the ED at [facility] on 05/17/17 with acute onset of N/V and diarrhea that began suddenly around 0300 that morning. She was treated with IVF and Zofran in the ED in [place] with symptomatic improvement. She was diagnosed with viral gastroenteritis and sent back to her [facility]. Pt continued to have diarrhea, N/V which was persistent and the pt was becoming increasingly weak so pt was brought back to the ER at [facility] on early this morning. - Pt again was given Zofran and IVF with improvement in her N/V. - She did have some diarrhea in the ER and stool was checked for C. diff which was negative. - Stool studies were positive for Norovirus - Pt was placed on isolation precautions - Imodium PRN - Pt has improved clinically from her viral gastroenteritis - Pt is on heart healthy diet. - No further diarrhea or vomiting, appetite improving. - Zofran PRN (4) Cough ICD Codes: R05 - Cough Status: Acute Plan: - On 05/19 pt complained of a new onset of cough and had some hypoxia requiring supplemental O2 - CXR with evidence of some volume overload/pulmonary edema - Pt was given a dose of Lasix 20mg po daily and KCL - Last night pt reportedly had increased SOB/hypoxia and the overnight covering physician was called and pt was given a dose of IV Lasix 40mg - CXR (05/20) --> No significant change patchy consolidation and small effusions of both bases. - pt likely had some fluid back up related to IVF and A. flutter - Still requiring supplemental O2 - Encouraged oral intake - Encouraged OOB to chair and deep breathing. - Try to wean off supplemental O2 - Repeat CXR in AM (5) Generalized weakness ICD Codes: R53.1 - Weakness; R19.7 - Diarrhea, unspecified Status: Acute Plan: - See above (6) Vomiting and diarrhea ICD Codes: R11.10 - Vomiting, unspecified; R19.7 - Diarrhea, unspecified Status: Acute Plan: - See above (7) Hypokalemia ICD Codes: E87.6 - Hypokalemia; R19.7 - Diarrhea, unspecified Status: Acute Plan: - See above - Improved with replacement (8) HTN (hypertension) ICD Codes: I10 - Essential (primary) hypertension Status: Chronic Plan: - Home meds resumed (9) GERD (gastroesophageal reflux disease) ICD Codes: K21.9 - Gastro-esophageal reflux disease without esophagitis Status: Chronic Plan: - PPI (10) Hyperlipidemia ICD Codes: E78.5 - Hyperlipidemia, unspecified Status: Chronic (11) Transient neurologic deficit ICD Codes: R29.818 - Other symptoms and signs involving the nervous system Status: Acute Plan: - Pts Plavix was resumed Assessment and Plan Patient examined. Assessment and plan formulated with Coco Starr PA-C. I agree with the above. Coco Starr May 22, 2017 15:37 Daniel Wheatley DO May 27, 2017 00:17
[2017-05-22] MEDS: IBUPROFEN 200 MG TAB PO PRN (17:02)
--- NOTE | 2017-05-22 18:43 | ECHRPT ---
Indication: ATRIAL FIB/FLUTTER CONCLUSIONS Normal left ventricular size. Mild concentric left ventricular hypertrophy. The left ventricular systolic function is mildly reduced with an estimated ejection fraction of 45%. The left atrial size is dilated. The right atrial size is moderately dilated. Moderate mitral valve regurgitation. Moderate mitral annular calcification. Aortic valve sclerosis is present. Mild to moderate aortic valve regurgitation. There is mild to moderate tricuspid valve regurgitation. The estimated pulmonary arterial pressure is 44 mmHg. Mild pulmonary valve regurgitation. BP: 118 / 64 HR: 70 Rhythm: Sinus MEASUREMENTS (Male / Female) Normal Values Technical Quality:Fair 2D ECHO LV Diastolic Diameter PLAX 4.3 cm 4.2 - 5.9 / 3.9 - 5.3 cm LV Systolic Diameter PLAX 3.4 cm IVS Diastolic Thickness 1.2 cm 0.6 - 1.0 / 0.6 - 0.9 cm LVPW Diastolic Thickness 1.0 cm 0.6 - 1.0 / 0.6 - 0.9 cm LV Relative Wall Thickness 0.5 RV Internal Dim ED PLAX 2.8 cm LVOT Diameter 1.9 cm LA Systolic Diameter LX 4.5 cm 3.0 - 4.0 / 2.7 - 3.8 cm M-MODE Aortic Root Diameter MM 3.6 cm LA Systolic Diameter MM 3.6 cm LA Ao Ratio MM 1.0 AV Cusp Separation MM 0.8 cm DOPPLER AV Peak Velocity 283.7 cm/s AV Peak Gradient 32.2 mmHg AV Mean Gradient 16.3 mmHg AV Velocity Time Integral 48.0 cm AI Peak Velocity 318.3 cm/s AI Peak Gradient 40.5 mmHg AI Pressure Half Time 216.7 ms LVOT Peak Velocity 73.4 cm/s LVOT Peak Gradient 2.2 mmHg LVOT Velocity Time Integral 13.1 cm LVOT Cardiac Index 1559.0 cm/minm AV Area Cont Eq vti 0.8 cm AV Area Cont Eq pk 0.7 cm MV Area PHT 4.4 cm Mitral E Point Velocity 120.0 cm/s Mitral A Point Velocity 90.1 cm/s Mitral E to A Ratio 1.3 LV E' Lateral Velocity 7.6 cm/s Mitral E to LV E' Lateral Ratio 15.8 LV E' Septal Velocity 5.4 cm/s Mitral E to LV E' Septal Ratio 22.4 TR Peak Velocity 292.0 cm/s TR Peak Gradient 34.1 mmHg Right Atrial Pressure 10.0 mmHg Pulmonary Artery Systolic Pressu 44.1 mmHg Right Ventricular Systolic Press 44.1 mmHg FINDINGS LEFT VENTRICLE Normal left ventricular size. Mild concentric left ventricular hypertrophy. The left ventricular systolic function is mildly reduced with an estimated ejection fraction of 45%. RIGHT VENTRICLE Normal right ventricular size and systolic function. LEFT ATRIUM The left atrial size is dilated. RIGHT ATRIUM The right atrial size is moderately dilated. ATRIAL SEPTUM The interatrial septum not well visualized. AORTA The aortic root and proximal ascending aorta are not well visualized. MITRAL VALVE Moderate mitral valve regurgitation. Moderate mitral annular calcification. AORTIC VALVE Aortic valve sclerosis is present. Mild to moderate aortic valve regurgitation. TRICUSPID VALVE There is mild to moderate tricuspid valve regurgitation. The estimated pulmonary arterial pressure is 44.1 mmHg. PULMONARY VALVE Mild pulmonary valve regurgitation. VESSELS The inferior vena cava is normal in size. PERICARDIUM No pericardial effusion. Mulu Castillo MD, FACC (Electronically Signed) Final Date:22 May 2017 18:42
[2017-05-22] MEDS: MELATONIN 5 MG TAB PO PRN (20:02)
[2017-05-23] VITALS (10 sets, daily range): BP systolic 134–163; BP diastolic 62–88; PULSE 74–102; RESP 17–20; TEMP 97.4–99.7; O2SAT 95–98
[2017-05-23] MEDS: ONDANSETRON HCL 4 MG/2 ML VIAL IV PUSH PRN (04:55)
[2017-05-23] MEDS: IBUPROFEN 200 MG TAB PO PRN (05:02)
[2017-05-23] MEDS: METOPROLOL SUCCINATE 25 MG EXTENDED RELEASE TAB PO SCH (08:15)
[2017-05-23] MEDS: CLOPIDOGREL 75 MG TAB PO SCH (08:16)
[2017-05-23] MEDS: POTASSIUM CHLORIDE 20 MEQ CONTROLLED RELEASE TAB PO SCH ×2 (08:16→20:25)
--- NOTE | 2017-05-23 12:28 | RADRPT ---
EXAM DATE/TIME: 05/23/2017 08:37 [facility] COMPARISON: No previous studies available for comparison. INDICATIONS : Short of breath. MEDICAL HISTORY : None. SURGICAL HISTORY : CABG. ENCOUNTER: Subsequent ACUITY: 2 days PAIN SCORE: 0/10 LOCATION: Bilateral chest FINDINGS: PA and lateral views of the chest demonstrate hazy opacity obscuring the left hemidiaphragm on both t he frontal and lateral view with posterior meniscal interface characteristic of a small to moderate-s ized left pleural effusion. There is loss of delineation of the bronchopulmonary markings medial left lower lung suggesting possible associated infiltrate. The right lung is clear. The heart is normal s ize. Prior median sternotomy, CABG and valve replacement with intact sternal wire sutures. CONCLUSION: Moderate size left pleural effusion with probable associated left lower lobe infiltrate. Obinna Funez MD on May 23, 2017 at 12:25 Board Certified Radiologist. This report was verified electronically.
--- NOTE | 2017-05-23 17:24 | HHI.PR ---
Subjective Remarks No new complaints. Telemetry continues to show periods of tachycardia/a flutter sustaining over 100 bpm. Objective Vitals Vital Signs Date Time Temp Pulse Resp B/P (MAP) Pulse Ox O2 Delivery O2 Flow Rate FiO2 05/23/17 12:00 97 Nasal Cannula 2.00 05/23/17 12:00 80 05/23/17 12:00 97.4 80 20 134/62 (86) 95 05/23/17 09:29 97 Nasal Cannula 2.00 05/23/17 08:00 98.5 86 20 153/72 (99) 97 05/23/17 08:00 80 05/23/17 04:22 97.8 88 17 163/63 (96) 98 05/23/17 03:55 85 05/23/17 00:39 97.8 83 17 147/65 (92) 96 05/23/17 00:01 74 05/22/17 21:34 Nasal Cannula 2.00 05/22/17 20:02 105 05/22/17 19:30 Room Air 05/22/17 17:44 96 Room Air Result Diagram: 05/19/17 0500 05/21/17 1133 Imaging Last Impressions Chest X-Ray 05/23/17 0800 Signed Impressions: Service Date/Time: Tuesday, May 23, 2017 08:37 - CONCLUSION: Moderate size left pleural effusion with probable associated left lower lobe infiltrate. Obinna Funez MD Objective Remarks General: NAD, Awake and alert Chest: Crackles at the bases bilaterally Cardiac: Regular Abd: +BS, soft ND/NT Ext: No edema A/P Problem List: (1) Pleural effusion, right ICD Codes: J90 - Pleural effusion, not elsewhere classified Status: Acute Plan: - obtain diagnostic/therapeutic thoracentesis - anticipate d/c to SNF 05/25/17 (2) Atrial flutter with rapid ventricular response ICD Codes: I48.92 - Unspecified atrial flutter Status: Acute Plan: - Pt developed A. flutter with heart rate as high as 140s, this rhythm appears to be new onset. - Pt was started on Cardizem gtt and given Cardizem IV once - She converted back to NSR and has been weaned off the Cardizem - Cont. Metoprolol 25mg po BID - 2D echo is pending - Cardiology was consulted and pt and family not interested in pursuing [facility] - Recommended medical management and to add Imdur, pts daughter declines addition of Imdur until she discusses this with Dr. Vasquez. - Not felt to be a great candidate for anticoagulation per Cardiology notes. - Pts daughter wants to continue on home medication regimen for now. - Telemetry today with continued episodes of A. flutter with elevated rate into the 120-140's - increase metoprolol XL to 50mg daily (3) Elevated troponin ICD Codes: R74.8 - Abnormal levels of other serum enzymes Status: Acute Plan: - Pt was noted to have an elevated troponin, felt to likely be demand mediated (4) Norovirus ICD Codes: A08.11 - Acute gastroenteropathy due to [place] agent Status: Acute Plan: - Pt is an 87 y/o WF with HTN, Hyperlipidemia, Hx of CVA/TIA (2016), CAD, AAA, Hx of aortic valve stenosis s/p AVR with bioprosthetic valve, and memory deficits. - She was brought to the ED at [facility] on 05/17/17 with acute onset of N/V and diarrhea that began suddenly around 0300 that morning. She was treated with IVF and Zofran in the ED in [place] with symptomatic improvement. She was diagnosed with viral gastroenteritis and sent back to her [facility]. Pt continued to have diarrhea, N/V which was persistent and the pt was becoming increasingly weak so pt was brought back to the ER at [facility] on early this morning. - Pt again was given Zofran and IVF with improvement in her N/V. - She did have some diarrhea in the ER and stool was checked for C. diff which was negative. - Stool studies were positive for Norovirus - Pt was placed on isolation precautions - Imodium PRN - Pt has improved clinically from her viral gastroenteritis - Pt is on heart healthy diet. - No further diarrhea or vomiting, appetite improving. - Zofran PRN (5) Cough ICD Codes: R05 - Cough Status: Acute Plan: - On 05/19 pt complained of a new onset of cough and had some hypoxia requiring supplemental O2 - CXR with evidence of some volume overload/pulmonary edema - Pt was given a dose of Lasix 20mg po daily and KCL - Last night pt reportedly had increased SOB/hypoxia and the overnight covering physician was called and pt was given a dose of IV Lasix 40mg - CXR (05/20) --> No significant change patchy consolidation and small effusions of both bases. - pt likely had some fluid back up related to IVF and A. flutter - Still requiring supplemental O2 - Encouraged oral intake - Encouraged OOB to chair and deep breathing. - Try to wean off supplemental O2 - Repeat CXR in AM (6) Generalized weakness ICD Codes: R53.1 - Weakness; R19.7 - Diarrhea, unspecified Status: Acute Plan: - See above (7) Vomiting and diarrhea ICD Codes: R11.10 - Vomiting, unspecified; R19.7 - Diarrhea, unspecified Status: Acute Plan: - See above (8) Hypokalemia ICD Codes: E87.6 - Hypokalemia; R19.7 - Diarrhea, unspecified Status: Acute Plan: - See above - Improved with replacement (9) HTN (hypertension) ICD Codes: I10 - Essential (primary) hypertension Status: Chronic Plan: - Home meds resumed (10) GERD (gastroesophageal reflux disease) ICD Codes: K21.9 - Gastro-esophageal reflux disease without esophagitis Status: Chronic Plan: - PPI (11) Hyperlipidemia ICD Codes: E78.5 - Hyperlipidemia, unspecified Status: Chronic (12) Transient neurologic deficit ICD Codes: R29.818 - Other symptoms and signs involving the nervous system Status: Acute Plan: - Pts Plavix was resumed Daniel Wheatley DO May 23, 2017 17:24
[2017-05-23 19:45] LABS: HEMATOCRIT 32.6 % (35.0-46.0); MEAN CELL VOLUME 86.1 FL (80.0-100.0); MEAN CORPUSCULAR HEMOGLOBIN 29.1 PG (27.0-34.0); MEAN CORPUSCULAR HGB CONC 33.8 % (32.0-36.0); MEAN PLATELET VOLUME 8.7 FL (7.0-11.0); PLATELET COUNT 286 TH/MM3 (150-450); RED BLOOD COUNT 3.78 MIL/MM3 (4.00-5.30); RED CELL DISTRIBUTION WIDTH 13.5 % (11.6-17.2); WHITE BLOOD COUNT 10.3 TH/MM3 (4.0-11.0)
[2017-05-23 19:57] LABS: INTERNATIONAL NORMALIZED RATIO 1.1 RATIO
--- NOTE | 2017-05-23 20:53 | RADRPT ---
EXAM DATE/TIME: 05/23/2017 18:54 [facility] COMPARISON: No previous studies available for comparison. INDICATIONS : Left pleural effusion. MEDICAL HISTORY : Dementia. Hypercholesterolemia. Hypertension. Cerebrovascular accident. Coronary artery disease. Anti coagulant therapy. Kidney stones. Arthritis. Blood tranfusion. SURGICAL HISTORY : Hysterectomy. Tonsillectomy. CABG. Left hip replacement. Tympanostomy tubes. Cardiac valve replacment . ENCOUNTER: Initial ACUITY: 1 day PAIN SCORE: 2/10 LOCATION: Left chest MEASUREMENTS: SKIN TO PARIETAL PLEURA: Inadequate fluid SKIN TO MAX SAFE DEPTH: Inadequate fluid ESTIMATED FLUID VOLUME: 130 cc FLUID COMPOSITION: simple FINDINGS: No marking was performed. CONCLUSION: Only a small left pleural effusion not considered safely drainable. Speedy Damon MD on May 23, 2017 at 20:51 Board Certified Radiologist. This report was verified electronically.
[2017-05-23] MEDS: MELATONIN 5 MG TAB PO PRN (21:35)
[2017-05-24] VITALS (7 sets, daily range): BP systolic 138–173; BP diastolic 64–87; PULSE 77–107; RESP 18–21; TEMP 97.6–98.3; O2SAT 95–100
[2017-05-24] MEDS: IBUPROFEN 200 MG TAB PO PRN ×3 (06:09→22:19)
[2017-05-24] MEDS: METOPROLOL SUCCINATE 50 MG EXTENDED RELEASE TAB PO SCH (08:55)
[2017-05-24] MEDS: CLOPIDOGREL 75 MG TAB PO SCH (08:55)
[2017-05-24] MEDS: POTASSIUM CHLORIDE 20 MEQ CONTROLLED RELEASE TAB PO SCH ×2 (08:56→22:19)
--- NOTE | 2017-05-24 18:09 | HHI.PR ---
Subjective Remarks Patient reports feeling well, no complaints at this time Objective Vitals Vital Signs Date Time Temp Pulse Resp B/P (MAP) Pulse Ox O2 Delivery O2 Flow Rate FiO2 05/24/17 16:00 83 05/24/17 12:00 93 05/24/17 12:00 97.8 83 20 142/65 (90) 95 05/24/17 08:00 98.0 77 18 143/66 (91) 95 05/24/17 08:00 87 05/24/17 07:00 Nasal Cannula 2.00 05/24/17 04:00 88 05/24/17 04:00 98.3 94 21 142/65 (90) 95 05/24/17 00:00 102 05/24/17 00:00 98.3 107 21 173/87 (115) 95 05/23/17 20:23 99.7 102 18 154/88 (110) 98 05/23/17 20:00 102 05/23/17 20:00 Nasal Cannula 2.00 05/23/17 18:31 97 Nasal Cannula 2.00 05/23/17 18:29 90 Result Diagram: 05/23/17 1755 05/21/17 1133 Other Results Laboratory Tests Test 05/23/17 17:55 05/23/17 20:00 White Blood Count 10.3 TH/MM3 Red Blood Count 3.78 MIL/MM3 Hemoglobin 11.0 GM/DL Hematocrit 32.6 % Mean Corpuscular Volume 86.1 FL Mean Corpuscular Hemoglobin 29.1 PG Mean Corpuscular Hemoglobin Concent 33.8 % Red Cell Distribution Width 13.5 % Platelet Count 286 TH/MM3 Mean Platelet Volume 8.7 FL Prothrombin Time 11.0 SEC Prothromb Time International Ratio 1.1 RATIO Activated Partial Thromboplast Time 27.1 SEC Imaging Last Impressions Chest X-Ray 05/23/17 0800 Signed Impressions: Service Date/Time: Tuesday, May 23, 2017 08:37 - CONCLUSION: Moderate size left pleural effusion with probable associated left lower lobe infiltrate. Obinna Funez MD Objective Remarks General: NAD, Awake and alert Chest: Crackles at the bases bilaterally Cardiac: Regular Abd: +BS, soft ND/NT Ext: No edema A/P Problem List: (1) Atrial flutter with rapid ventricular response ICD Codes: I48.92 - Unspecified atrial flutter Status: Acute Plan: - Pt developed A. flutter with heart rate as high as 140s, this rhythm appears to be new onset. - Pt was started on Cardizem gtt and given Cardizem IV once - She converted back to NSR and has been weaned off the Cardizem - Cont. Metoprolol 25mg po BID - 2D echo: Normal left ventricular size. Mild concentric left ventricular hypertrophy. The left ventricular systolic function is mildly reduced with an estimated ejection fraction of 45%. The left atrial size is dilated. The right atrial size is moderately dilated. Moderate mitral valve regurgitation. Moderate mitral annular calcification. Aortic valve sclerosis is present. Mild to moderate aortic valve regurgitation. There is mild to moderate tricuspid valve regurgitation. The estimated pulmonary arterial pressure is 44 mmHg. Mild pulmonary valve regurgitation. - Cardiology was consulted and pt and family not interested in pursuing [facility] - Cardiology has signed off - Recommended medical management and to add Imdur, pts daughter declines addition of Imdur until she discusses this with Dr. Vasquez. - Not felt to be a great candidate for anticoagulation per Cardiology notes. - Pts daughter wants to continue on home medication regimen for now. - Telemetry today with continued episodes of A. flutter with elevated rate into the 120-140's - increased metoprolol XL to 50mg daily -> HR improved Patient appears stable plan to DC to SNF in AM (2) Elevated troponin ICD Codes: R74.8 - Abnormal levels of other serum enzymes Status: Acute Plan: - Pt was noted to have an elevated troponin, felt to likely be demand mediated (3) Norovirus ICD Codes: A08.11 - Acute gastroenteropathy due to [place] agent Status: Acute Plan: - Pt is an 87 y/o WF with HTN, Hyperlipidemia, Hx of CVA/TIA (2017), CAD, AAA, Hx of aortic valve stenosis s/p AVR with bioprosthetic valve, and memory deficits. - She was brought to the [place] [facility] [place] with acute onset of N/V and diarrhea that began suddenly around 0300 that morning. She was treated with IVF and Zofran in the ED in [place] with symptomatic improvement. She was diagnosed with viral gastroenteritis and sent back to her [facility]. Pt continued to have diarrhea, N/V which was persistent and the pt was becoming increasingly weak so pt was brought back to the ER at [facility] on early this morning. - Pt again was given Zofran and IVF with improvement in her N/V. - She did have some diarrhea in the ER and stool was checked for C. diff which was negative. - Stool studies were positive for Norovirus - Pt was placed on isolation precautions - Imodium PRN - Pt has improved clinically from her viral gastroenteritis - Pt is on heart healthy diet. - No further diarrhea or vomiting, appetite improving. - Zofran PRN (4) Cough ICD Codes: R05 - Cough Status: Acute Plan: - On 05/19 pt complained of a new onset of cough and had some hypoxia requiring supplemental O2 - CXR with evidence of some volume overload/pulmonary edema - (05/19) pt reportedly had increased SOB/hypoxia and the overnight covering physician was called and pt was given a dose of IV Lasix 40mg - CXR (05/20) --> No significant change patchy consolidation and small effusions of both bases. - pt likely had some fluid back up related to IVF and A. flutter - Still requiring supplemental O2 - Encouraged oral intake - Encouraged OOB to chair and deep breathing. - Try to wean off supplemental O2 - CXR (05/23) Moderate size left pleural effusion with probable associated left lower lobe infiltrate - US left chest reveals only a small left pleural effusion not considered safe to drain (5) Generalized weakness ICD Codes: R53.1 - Weakness; R19.7 - Diarrhea, unspecified Status: Acute Plan: - See above (6) Vomiting and diarrhea ICD Codes: R11.10 - Vomiting, unspecified; R19.7 - Diarrhea, unspecified Status: Acute Plan: - See above (7) Hypokalemia ICD Codes: E87.6 - Hypokalemia; R19.7 - Diarrhea, unspecified Status: Acute Plan: - See above - Improved with replacement (8) HTN (hypertension) ICD Codes: I10 - Essential (primary) hypertension Status: Chronic Plan: - Home meds resumed (9) GERD (gastroesophageal reflux disease) ICD Codes: K21.9 - Gastro-esophageal reflux disease without esophagitis Status: Chronic Plan: - PPI (10) Hyperlipidemia ICD Codes: E78.5 - Hyperlipidemia, unspecified Status: Chronic (11) Transient neurologic deficit ICD Codes: R29.818 - Other symptoms and signs involving the nervous system Status: Acute Plan: - Pts Plavix was resumed (12) Pleural effusion, left ICD Codes: J90 - Pleural effusion, not elsewhere classified Plan: US left chest reveals only a small left pleural effusion not considered safe to drain Assessment and Plan Patient examined. Assessment and plan formulated with Kassie Saba PA-C. I agree with the above. Kassie Saba May 24, 2017 18:09 Daniel Wheatley DO May 27, 2017 00:19
[2017-05-24] MEDS ORDERED: [UNRECOGNIZED DRUG - CODE] PO (18:15)
[2017-05-24] MEDS ORDERED: METO1TAB9 PO (18:15)
[2017-05-24] MEDS ORDERED: OXYGENTANK NAS.CANULA (18:26)
[2017-05-24] MEDS ORDERED: OXYGENDME NAS.CANULA (18:26)
[2017-05-24 22:03] LABS: BICARBONATE 24.7 MEQ/L (21.0-32.0); CALCIUM 8.9 MG/DL (8.5-10.1); CREATININE 0.84 MG/DL (0.50-1.00)
[2017-05-24] MEDS: MELATONIN 5 MG TAB PO PRN (22:19)
[2017-05-25] VITALS: BP 131/59; PULSE 84; PULSE 86; RESP 20; TEMP 98.1; O2SAT 96
[2017-05-25 04:00] VITALS: BP 127/78; PULSE 80; PULSE 86; RESP 20; TEMP 97.9; O2SAT 99
[2017-05-25 08:05] VITALS: BP 156/71; PULSE 78; RESP 18; TEMP 97.9; O2SAT 94
[2017-05-25 08:10] VITALS: PULSE 83
[2017-05-25] MEDS: IBUPROFEN 200 MG TAB PO PRN (08:10)
[2017-05-25] MEDS: CLOPIDOGREL 75 MG TAB PO SCH (08:10)
[2017-05-25] MEDS: POTASSIUM CHLORIDE 20 MEQ CONTROLLED RELEASE TAB PO SCH (08:10)
[2017-05-25] MEDS: METOPROLOL SUCCINATE 50 MG EXTENDED RELEASE TAB PO SCH (08:10)
[2017-05-25] MEDS ORDERED: POTA20TA5 PO (08:23)
--- NOTE | 2017-05-25 08:28 | HHI.DS ---
Discharge Summary Admission Date May 21, 2017 at 08:06 Discharge Date: May 25, 2017 Admitting Diagnosis generalized weakness; acute diarrheal illness; hypokalemia (1) Atrial flutter with rapid ventricular response Diagnosis: Principal ICD Codes: I48.92 - Unspecified atrial flutter Status: Acute (2) Elevated troponin Diagnosis: Principal ICD Codes: R74.8 - Abnormal levels of other serum enzymes Status: Acute (3) Norovirus Diagnosis: Principal ICD Codes: A08.11 - Acute gastroenteropathy due to [place] agent Status: Acute (4) Generalized weakness Diagnosis: Principal ICD Codes: R53.1 - Weakness; R19.7 - Diarrhea, unspecified Status: Acute (5) Vomiting and diarrhea Diagnosis: Principal ICD Codes: R11.10 - Vomiting, unspecified; R19.7 - Diarrhea, unspecified Status: Acute (6) Hypokalemia Diagnosis: Principal ICD Codes: E87.6 - Hypokalemia; R19.7 - Diarrhea, unspecified Status: Acute (7) HTN (hypertension) Diagnosis: Secondary ICD Codes: I10 - Essential (primary) hypertension Status: Chronic (8) GERD (gastroesophageal reflux disease) Diagnosis: Secondary ICD Codes: K21.9 - Gastro-esophageal reflux disease without esophagitis Status: Chronic (9) Hyperlipidemia Diagnosis: Secondary ICD Codes: E78.5 - Hyperlipidemia, unspecified Status: Chronic (10) Transient neurologic deficit Diagnosis: Secondary ICD Codes: R29.818 - Other symptoms and signs involving the nervous system Status: Acute (11) Pleural effusion, left Diagnosis: Principal ICD Codes: J90 - Pleural effusion, not elsewhere classified Consultants Dr. Vogel, Cardiology Procedures none Brief History Mrs. Whaley is a pleasant 87 y/o WF with HTN, Hyperlipidemia, Hx of CVA/TIA ( 2017), CAD, AAA, Hx of aortic valve stenosis s/p AVR with bioprosthetic valve, and memory deficits. She was brought to the ED at [facility] [place] on 05/17/17 with acute onset of N/V and diarrhea that began suddenly around 0300 that morning. She was treated with IVF and Zofran in the ED in [place] with symptomatic improvement. Her labs at that time noted WBC count 14.7, Hgb 11.5, BUN 34, Cr 1.0. She was diagnosed with viral gastroenteritis and sent back to her [facility]. Her daughter reports that after returning home the pt again developed diarrhea, N/V which was persistent and the pt was becoming increasingly weak so pt was brought back to the ER at [facility] on early this morning. Pt again was given Zofran and IVF with improvement in her N/V. She did have some diarrhea in the ER and stool was checked for C. diff which was negative. Pt is a rather poor historian so the history was obtained over the phone from the pts daughter, Lianna. She denies any ill contacts, recent travel, abnormal food intake, recent antibiotic use, or any medication changes. Pt denies any abd pain, melena , BRBPR, hematemesis, urinary frequency or dysuria. No previous similar episodes. CBC/BMP: 05/23/17 1755 05/24/17 2108 Significant Findings Laboratory Tests Test 05/23/17 17:55 05/23/17 20:00 05/24/17 21:08 Red Blood Count 3.78 MIL/MM3 (4.00-5.30) Hemoglobin 11.0 GM/DL (11.6-15.3) Hematocrit 32.6 % (35.0-46.0) Blood Urea Nitrogen 21 MG/DL (7-18) Random Glucose 109 MG/DL (74-106) Sodium Level 134 MEQ/L (136-145) Estimat Glomerular Filtration Rate 64 ML/MIN (>89) Imaging Last Impressions Chest X-Ray 05/23/17 0800 Signed Impressions: Service Date/Time: Tuesday, May 23, 2017 08:37 - CONCLUSION: Moderate size left pleural effusion with probable associated left lower lobe infiltrate. Obinna Funez MD Chest Ultrasound 05/23/17 0000 Signed Impressions: Service Date/Time: Tuesday, May 23, 2017 18:54 - CONCLUSION: Only a small left pleural effusion not considered safely drainable. Speedy Damon MD PE at Discharge General: NAD, Awake and alert Chest: Crackles at the bases bilaterally Cardiac: Regular Abd: +BS, soft ND/NT Ext: No edema Hospital Course Atrial flutter with rapid ventricular response - Pt developed A. flutter with heart rate as high as 140s, this rhythm appears to be new onset. - Pt was started on Cardizem gtt and given Cardizem IV once - She converted back to NSR and has been weaned off the Cardizem - Cont. Metoprolol 25mg po BID - 2D echo: Normal left ventricular size. Mild concentric left ventricular hypertrophy. The left ventricular systolic function is mildly reduced with an estimated ejection fraction of 45%. The left atrial size is dilated. The right atrial size is moderately dilated. Moderate mitral valve regurgitation. Moderate mitral annular calcification. Aortic valve sclerosis is present. Mild to moderate aortic valve regurgitation. There is mild to moderate tricuspid valve regurgitation. The estimated pulmonary arterial pressure is 44 mmHg. Mild pulmonary valve regurgitation. - Cardiology was consulted and pt and family not interested in pursuing [facility] - Cardiology has signed off - Recommended medical management and to add Imdur, pts daughter declines addition of Imdur until she discusses this with Dr. Vasquez. - Not felt to be a great candidate for anticoagulation per Cardiology notes. - Pts daughter wants to continue on home medication regimen for now. - Telemetry today with continued episodes of A. flutter with elevated rate into the 120-140's - increased metoprolol XL to 50mg daily -> HR improved Patient appears stable plan to DC to SNF in AM Elevated troponin - Pt was noted to have an elevated troponin, felt to likely be demand mediated Norovirus - Pt is an 87 y/o WF with HTN, Hyperlipidemia, Hx of CVA/TIA (2017), CAD, AAA, Hx of aortic valve stenosis s/p AVR with bioprosthetic valve, and memory deficits. - She was brought to the ED at [facility] [place] on 05/17/17 with acute onset of N/V and diarrhea that began suddenly around 0300 that morning. She was treated with IVF and Zofran in the ED in [place] with symptomatic improvement. She was diagnosed with viral gastroenteritis and sent back to her [facility]. Pt continued to have diarrhea, N/V which was persistent and the pt was becoming increasingly weak so pt was brought back to the ER at [facility] on early this morning. - Pt again was given Zofran and IVF with improvement in her N/V. - She did have some diarrhea in the ER and stool was checked for C. diff which was negative. - Stool studies were positive for Norovirus - Pt was placed on isolation precautions - Imodium PRN - Pt has improved clinically from her viral gastroenteritis - Pt is on heart healthy diet. - No further diarrhea or vomiting, appetite improving. - Zofran PRN Cough - On 05/19 pt complained of a new onset of cough and had some hypoxia requiring supplemental O2 - CXR with evidence of some volume overload/pulmonary edema - (05/19) pt reportedly had increased SOB/hypoxia and the overnight covering physician was called and pt was given a dose of IV Lasix 40mg - CXR (05/20) --> No significant change patchy consolidation and small effusions of both bases. - pt likely had some fluid back up related to IVF and A. flutter - Still requiring supplemental O2 - Encouraged oral intake - Encouraged OOB to chair and deep breathing. - Try to wean off supplemental O2 - CXR (05/23) Moderate size left pleural effusion with probable associated left lower lobe infiltrate - US left chest reveals only a small left pleural effusion not considered safe to drain Generalized weakness - See above Vomiting and diarrhea - See above Hypokalemia - See above - Improved with replacement HTN (hypertension) - Home meds resumed Hyperlipidemia Chronic Transient neurologic deficit - Pts Plavix was resumed Pleural effusion, left US left chest reveals only a small left pleural effusion not considered safe to drain Failed walk test DC with oxygen 2L via NC Pt Condition on Discharge: Stable Discharge Disposition: Discharge to SNF Discharge Instructions DIET: Follow Instructions for: Heart Healthy Diet Activities you can perform: Regular-No Restrictions Follow up Referrals: Cardiology - [address] Vasquez PCP Follow-up - 1 Week with CP Home Docs New Medications: Loperamide (Imodium A-D) 2 Mg Capsule 2 MG PO Q6H PRN for DIARRHEA, #30 CAP 0 Refills Oxygen (O2) (Oxygen (O2)) Device LITER DAK[place].CANULA CONTINUOUS for Prevent Hypoxemia, #2 Oxygen Concentrator Portable Gaseous 2 L/min via Nasal Canula Continuous For 1 month Oxygen tank (Oxygen tank) 1 Ea Tank LITER DAKOTA.CANULA CONTINUOUS for HYPOXEMIA PREVENTION, #2 Oxygen Concentrator Portable Gaseous 2 L/min via Nasal Cannula Continuous For 1 month Ibuprofen (Tgt Ibuprofen) 200 Mg Tab 200 MG PO Q8H PRN for shoulder pain, #14 TAB 0 Refills Metoprolol Succinate ER 24 HR (Metoprolol Succinate ER 24 HR) 50 Mg Tab 50 MG PO DAILY for blood pressure/ heart rate for 30 Days, #30 TAB 0 Refills Potassium Chloride Microencaps (Potassium Chloride Microencaps) 20 Meq Tab 20 MEQ PO DAILY for potassium supplement, #30 TAB 0 Refills Continued Medications: Clopidogrel (Plavix) 75 Mg Tab 75 MG PO DAILY for TIA, #30 TAB Ondansetron (Zofran) 4 Mg Tab 4 MG PO Q6HR PRN for NAUSEA OR VOMITING, #30 TAB 0 Refills Discontinued Medications: Metoprolol Succinate ER 24 HR (Metoprolol Succinate ER 24 HR) 25 Mg Tab 25 MG PO DAILY, #30 TAB 0 Refills Additional Information Patient examined. Assessment and plan formulated with Kassie Saba PA-C. I agree with the above. Kassie Saba May 25, 2017 08:28 Daniel Wheatley DO May 27, 2017 00:21
[2017-05-25 09:20] LABS: CALCIUM 9.2 MG/DL (8.5-10.1); CREATININE 0.75 MG/DL (0.50-1.00)
[2017-05-25 12:20] VITALS: PULSE 83
== END 2017-05-25 13:07 | DRG 392 ==
LOC: NEPC 03:04 → NEDA 06:21 → NEDH 14:38 → NEPFCDU 16:50 → N03B 05-21 03:29 → OBSVTOIN 05-21 08:06 → N04B 05-21 13:54
PROVIDERS: ADMIT Hospitalist; ATTEND Hospitalist
DX: A08.11 Acute gastroenteropathy due to Norwalk agent (principal); J81.1 Chronic pulmonary edema; J90 Pleural effusion, not elsewhere classified; I48.92 Unspecified atrial flutter; F03.90 Unspecified dementia, unspecified severity, without behavioral disturbance, psychotic disturbance, mood disturbance, and anxiety; E87.70 Fluid overload, unspecified; M19.90 Unspecified osteoarthritis, unspecified site; I10 Essential (primary) hypertension; I25.10 Atherosclerotic heart disease of native coronary artery without angina pectoris; E78.5 Hyperlipidemia, unspecified; Z96.642 Presence of left artificial hip joint; E87.6 Hypokalemia; G89.29 Other chronic pain; M54.5 Low back pain; M81.0 Age-related osteoporosis without current pathological fracture; R09.02 Hypoxemia; K21.9 Gastro-esophageal reflux disease without esophagitis; E86.0 Dehydration; R74.8 Abnormal levels of other serum enzymes; I08.3 Combined rheumatic disorders of mitral, aortic and tricuspid valves; R00.0 Tachycardia, unspecified; Z95.1 Presence of aortocoronary bypass graft; Z86.73 Personal history of transient ischemic attack (TIA), and cerebral infarction without residual deficits; Z79.02 Long term (current) use of antithrombotics/antiplatelets; Z95.3 Presence of xenogenic heart valve; Z85.828 Personal history of other malignant neoplasm of skin; Z87.891 Personal history of nicotine dependence
CPT/HCPCS: 36600; 71045; 71046; 76604; 80048; 80053; 81001; 82805; 82948; 83690; 83735; 84132; 84484; 85025; 85027; 85610; 85730; 87015; 87493; 87506; 87641; 93005; 93306; 94618; 94640; 94664; 96361; 96374; 96375; 96376; G0378; G8987-GP; G8988-GP; J1940; J2405; J3480; J7030